=== PATIENT | female | born 1990 | race Hispanic/Latino ===

== ENCOUNTER 2018-05-14 14:39 | Inpatient (IN) | payer MEDICAID, OTHER, SELFPAY ==
[2018-05-14 15:58] LABS: BASO # 0.02 K/mm3 (0.0-2.0); BASO % 0.1 % (0.0-3.0); EOS % 0.1 % (1.5-5.0); GRAN # 25.99 (1.4-6.5); GRAN % 82.4 % (50.0-68.0); HEMOGLOBIN 13.1 g/dL (12.0-16.0); LYMPH # 2.7 (1.2-3.4); LYMPH % 8.4 % (22.0-35.0); MEAN CELL VOLUME 85.3 fl (80.0-105.0); MEAN CORPUSCULAR HEMOGLOBIN 29.6 pg (25.0-35.0); MEAN CORPUSCULAR HGB CONC 34.7 g/dl (31.0-37.0); MONO # 2.8 (0.1-0.6); PLATELET COUNT 359 10^3/uL (120.0-450.0); RBC 4.43 10^6/uL (3.5-6.1); RED CELL DISTRIBUTION WIDTH 12.7 % (11.5-14.5)
--- NOTE | 2018-05-14 15:58 | ED PDOC ---
Arrival/HPI - General Chief Complaint: Lower Extremity Problem/Injury Time Seen by Provider: 05/14/18 15:17 Historian: Patient - History of Present Illness Narrative History of Present Illness (Text): 05/14/18 19:33 28 year old female presents today with left leg numbness and weakness. Patient states she was getting her children a bath and suddenly developed a numbness sensation in both legs. Patient states she was unable to ambulate and called out of the room and then realized that the numbness and weakness was only in the left leg. Patient states he then had an anxiety attack and states that she developed chest pain and feeling extremely anxious and became nauseous. Patient states she has a history of anxiety and these are similar symptoms related to her anxiety. Patient states in the emergency room she is feeling better. Patient states she is able to move her leg. Patient denies any fevers or chills. She denies abdominal pain. She denies any trauma or injury. Patient states she's been having low back pain for the past 2 months with pain radiating into the left leg. Patient states she's been seen at other hospitals for similar symptoms. Patient denies a history of recent fever. She denies history of sick contacts. Patient states she was recently treated for urinary tract infection with an unknown antibiotics about a week ago. Patient states since then she's been having no urinary symptoms. She patient states she urinated prior to arrival. Patient states she has been taking Percocet for her back pain as well as occasionally using marijuana. Patient denies ever using any IV drugs patient states she was feeling fine until the left leg became numb and weak. Patient denies headache dizziness or weakness. Denies any other complaints. Time/Duration: Prior to Arrival Past Medical History - Provider Review Nursing Documentation Reviewed: Yes - Travel History Have you recently traveled outside [place] w/in the past 3 mons?: No - Past History Past History: No Previous - Infectious Disease Hx of Infectious Diseases: None - Tetanus Immunization Tetanus Immunization: Unknown - Past Medical History Past Medical History: No Previous - Cardiac Hx Pacemaker: No - Pulmonary Hx Respiratory Disorders: No - Neurological Hx Neurological Disorder: No - HEENT Hx HEENT Disorder: No (WEARS RX GLASSES) - Renal Hx Renal Disorder: Yes Hx Kidney Stones: Yes - Endocrine/Metabolic Hx Endocrine Disorders: No - Hematological/Oncological Hx Blood Transfusions: No Hx Blood Transfusion Reaction: No - Integumentary Hx Dermatological Disorder: No - Musculoskeletal/Rheumatological Hx Musculoskeletal Disorders: No - Gastrointestinal Hx Gastrointestinal Disorders: No - Genitourinary/Gynecological Hx Genitourinary Disorders: No ( X 1) Other/Comment: 17 MONTHS AGO - Psychiatric Hx Substance Use: No - Past Surgical History Past Surgical History: No Previous - Surgical History Hx Appendectomy: Yes - Anesthesia Hx Anesthesia Reactions: No Hx Malignant Hyperthermia: No - Suicidal Assessment Feels Threatened In Home Enviroment: No Family/Social History - Physician Review Nursing Documentation Reviewed: Yes Family/Social History: Unknown Family HX Smoking Status: Current Some Days Smoker Hx Alcohol Use: Yes Hx Substance Use: No Hx Substance Use Treatment: No Allergies/Home Meds Allergies/Adverse Reactions: Allergies cefaclor [From Ceclor] Allergy (Verified 05/14/18 14:46) RASH Home Medications: Home Meds Medication Instructions Recorded Confirmed No Known Home Med 06/18/15 06/18/15 Review of Systems - Review of Systems Constitutional: absent: Fatigue, Fevers Respiratory: absent: SOB, Cough Cardiovascular: Chest Pain. absent: Palpitations Gastrointestinal: Nausea. absent: Abdominal Pain, Constipation, Diarrhea, Vomiting Genitourinary Female: absent: Dysuria, Frequency, Hematuria, Urine Output Changes Musculoskeletal: Arthralgias, Back Pain. absent: Neck Pain Skin: absent: Rash, Pruritis Neurological: absent: Headache, Dizziness Psychiatric: Anxiety. absent: Depression, Suicidal Ideation Physical Exam Vital Signs Reviewed: Yes Vital Signs Temp Pulse Resp BP Pulse Ox 05/14/18 14:40 97.5 F L 115 H 20 113/69 99 Temperature: Afebrile Blood Pressure: Normal Pulse: Tachycardic Respiratory Rate: Normal Appearance: Positive for: Well-Appearing, Non-Toxic, Comfortable Pain Distress: None Mental Status: Positive for: Alert and Oriented X 3, other (anxious) - Systems Exam Head: Present: Atraumatic Mouth: Present: Moist Mucous Membranes Neck: Present: Normal Range of Motion Respiratory/Chest: Present: Clear to Auscultation, Good Air Exchange. No: Respiratory Distress, Accessory Muscle Use Cardiovascular: Present: Normal S1, S2, Tachycardic. No: Murmurs Abdomen: No: Tenderness, Distention, Rebound, Guarding Rectal: Present: Normal Rectal Tone. No: Occult Blood, Rectal Tenderness, Gross Blood, Melena, Hemorrhoids, Fissures Back: Present: Normal Inspection, Other (+ ttp over left sciatic foramen). No: Midline Tenderness, Paraspinal Tenderness Upper Extremity: Present: Normal Inspection, Normal ROM Lower Extremity: Present: NORMAL PULSES, Capillary Refill < 2 s, Other (+ decreased sensation in entire left leg. decreased strength in left leg. ). No: CALF TENDERNESS, Tenderness, Swelling, Erythema, Temperature Abnormalties, Neurovascularly Intact Neurological: Present: GCS=15, Speech Normal. No: Normal Sensory Function Skin: Present: Warm, Dry Psychiatric: Present: Alert, Oriented x 3 Medical Decision Making ED Course and Treatment: 05/14/18: 28yr old female presenting with left leg numbness. moving left slight. slightly decreased strength. hx of back pain x 2 months. rectal exam; good tone, no gross blood. No saddle paresthesias. Patient with inability to urinate in the emergency room. Straight catheterization ordered. 05/14/18 15:57 patient was given xanax po; within 2 minutes patient vomited. Patient was seen and evaluated by Dr. Mccord. MRI Of lumbar spine ordered. beta hcg; negative cbc; wbc:31 cmp; wnl UA; wnl cxr; wnl lactate; wnl blood and urine cultures pending ct abd/pelvis: FINDINGS: LUNG BASES: The lung bases appear clear. No pleural effusions are seen. LIVER: Mild periportal edema and pericholecystic fluid. , may represent fluid overload versus hepatitis. GALLBLADDER AND BILE DUCTS: However if there is clinical concern for cholecystitis, consider correlation with right upper quadrant ultrasound or hepatobiliary scan. PANCREAS: Unremarkable. SPLEEN: Unremarkable. ADRENAL GLANDS: 2.3 cm low density nodule is noted in the right adrenal gland consistent with an adenoma. KIDNEYS, URETERS, AND BLADDER: Several small bilateral renal cysts are present. The kidneys are otherwise normal. STOMACH AND BOWEL: Unremarkable appearance of the stomach and bowel. No evidence of bowel obstruction. No evidence suggesting enteritis or colitis. APPENDIX: Status post appendectomy. PERITONEUM: No free fluid. No free air. LYMPH NODES: No lymphadenopathy is evident. REPRODUCTIVE: Uterus and ovaries are unremarkable. VASCULATURE: No evidence of abdominal aortic aneurysm. BONES: No aggressive appearing osseous lesion. No acute osseous pathology evident. IMPRESSION: 1>. Mild periportal edema and pericholecystic fluid. , may represent fluid overload versus hepatitis. 2. However if there is clinical concern for cholecystitis, consider correlation with right upper quadrant ultrasound or hepatobiliary scan. 3. 2.3 cm low density nodule is noted in the right adrenal gland consistent with an adenoma. 4. Several small bilateral renal cysts are present. Patient with leukocytosis and left leg numbness inability to urinate in the emergency room. Concern for cauda equina versus epidural abscess. Will cover with vancomycin and aztreonam IV. pt reassesment; pt feeling better in ER: vitals improving. still c/o numbness in left leg. no abdominal pain. anxiety symptoms resolved. Case was discussed with Dr. Araujo. He would like the patient to be admitted to the hospitalist service. case was discussed with dr. Shabazz neurologist; she advised MRI of lumbar/sacral spine with IV contrast. case discussed with the cellophane wrapping examiner Dr. ventura who accepts admission to the ICU. case also discussed with dr. Saavedra. MRI is currently pending. All results discussed in depth with the patient and her . impression; leukocytosis, left leg numbness, left leg weakness, back pain Admit to ICU - RAD Interpretation Radiology Orders: 05/14/18 15:19 CHEST PORTABLE [RAD] Stat - Medication Orders Current Medication Orders: Discontinued Medications Alprazolam (Xanax) 0.5 mg PO STAT STA; Protocol Stop: 05/14/18 15:25 Last Admin: 05/14/18 15:41 Dose: 0.5 mg Disposition/Present on Arrival - Present on Arrival Any Indicators Present on Arrival: No History of DVT/PE: No History of Uncontrolled Diabetes: No Urinary Catheter: No History of Decub. Ulcer: No History Surgical Site Infection Following: None - Disposition Have Diagnosis and Disposition been Completed?: Yes Diagnosis: Leukocytosis, Left leg numbness, Back pain Disposition: HOSPITALIZED Disposition Time: 19:00 Patient Plan: Admission, ICU Patient Problems: Current Active Problems Problem Status Onset Back pain Acute Left leg numbness Acute Leukocytosis Acute Condition: CRITICAL
[2018-05-14] MEDS ORDERED: Sodium Chloride 0.9% 1,000 ML IV STA ×2 (16:05→17:03)
[2018-05-14 16:13] LABS: ACETAMINOPHEN < 10.0 ug/ml (10.0-20.0); SALICYLATE < 1 mg/dL (2.0-20.0)
[2018-05-14 16:16] LABS: ALB/GLOB RATIO 1.8 (1.1-1.8); ALBUMIN 4.9 g/dL (3.0-4.8); ALT/SGPT 32 U/L (7-56); AST/SGOT 44 U/L (14-36); BLOOD UREA NITROGEN 16 mg/dL (7-21); GFR NON-AFRICAN AMERICAN > 60
[2018-05-14 16:24] LABS: WHITE BLOOD COUNT 31.5 10^3/ul (4.5-11.0)
[2018-05-14 16:31] LABS: LYMPHOCYTE 13 % (22.0-35.0); MONOCYTE 3 % (1.0-6.0); NEUTROPHIL 84 % (50.0-70.0)
[2018-05-14 16:32] LABS: PLATELET ESTIMATE NORMAL (NORMAL)
[2018-05-14 17:03] LABS: VENOUS BLOOD GAS BASE EXCESS -1.4 mmol/L (0.0-2.0); VENOUS BLOOD GAS PO2 95 mm/Hg (30-55); VENOUS BLOOD PH 7.29 (7.32-7.43)
[2018-05-14 17:22] LABS: URINE BILIRUBIN NEGATIVE (NEGATIVE); URINE BLOOD NEGATIVE (NEGATIVE); URINE GLUCOSE (UA) 250 mg/dL (NEGATIVE); URINE LEUKOCYTE ESTERASE NEGATIVE Leu/uL (NEGATIVE); URINE PROTEIN 30 mg/dL (<30 mg/dL); URINE UROBILINOGEN 0.2 E.U./dL (<1 E.U./dL)
[2018-05-14 17:24] LABS: URINE APPEARANCE SL CLOUDY (CLEAR); URINE COLOR YELLOW (YELLOW)
[2018-05-14 17:26] LABS: URINE BACTERIA MANY (NEG); URINE RBC NEGATIVE /hpf (0-2); URINE WBC 0 - 2 /hpf (0-6)
[2018-05-14] MEDS ORDERED: Iohexol 350 MG/100 ML VIAL ONE (17:28)
[2018-05-14 17:56] LABS: BENZODIAZEPINES, UR NEGATIVE (NEGATIVE)
[2018-05-14 18:04] LABS: BARBITURATES, UR NEGATIVE (NEGATIVE); OPIATES, UR NEGATIVE (NEGATIVE); PHENCYCLIDINE, UR NEGATIVE (NEGATIVE)
[2018-05-14] MEDS ORDERED: Vancomycin 1gm in NS 250ml 1 GM/250 ML BAG IVPB STA (18:23)
[2018-05-14] MEDS ORDERED: Aztreonam 1 Gm in NS 100mL 100 ML IVPB STA (18:23)
[2018-05-14] MEDS ORDERED: Oxycodone/Acetaminophen 5/325 mg Tab PO PRN (20:24)
--- NOTE | 2018-05-14 20:40 | CP.PCM.HP ---
<Roxana Townsend - Last Filed: 05/16/18 06:39> History of Present Illness - History of Present Illness History of Present Illness: Roxana Townsend, PGY2, H&P for Dr Saavedra: CC: left leg numbness 28 year old female with PMH anxiety, presents for left leg numbness and weakness that started this afternoon. Patient states that she was giving her children a bath, when she felt that her left leg "gave out," became numb and weak, and she got on the floor. Then she felt that she became very anxious, may have passed out (for maybe a minute), then woke up, but was unable to move her left leg. Patient also reports that she has been having left sided sciatica pain for past 3 years since her . However, it has gotten worse for past month, patient was supposed to get physical therapy for it. Reports one episode of nausea, nonbilious vomiting during the episode, also reports ringing in her ears for some time. Denies fevers, chills, dizziness, shaking body movements, urinary/bowel incontinence, tongue biting, chest pain, sob, cough, dysuria, hematuria, neck pain, headaches. Patient reports urinary retention since the event this afternoon. However, she just urinated in ED currently. In ED, patient afebrile, hemodynamically stable. WBC count 31.5, lactate normal, CMP unremarkable, UA neg for infection. UDS pos for cannabinoids. 12 point ROS obtained and negative, except as per HPI. Past medical history: denies Surgical history: Appendectomy, kidney stones All: Cefaclor (as a child) patient has taken amoxicillin before. FH: Mother, MS, fibromyalgia Social history: Lives with . Smokes 5-6 ciggs/day for 8 years. Uses marijuana every other day. PMD: [facility] Present on Admission - Present on Admission Any Indicators Present on Admission: No History of DVT/PE: No History of Uncontrolled Diabetes: No Urinary Catheter: No Decubitus Ulcer Present: No Review of Systems - Review of Systems All systems: reviewed and no additional remarkable complaints except Review of Systems: as per HPI Past Patient History - Infectious Disease Hx of Infectious Diseases: None - Tetanus Immunizations Tetanus Immunization: Unknown - Past Social History Smoking Status: Current Some Days Smoker - CARDIAC Hx Pacemaker: No - PULMONARY Hx Respiratory Disorders: No - NEUROLOGICAL Hx Neurological Disorder: No - HEENT Hx HEENT Problems: No (WEARS RX GLASSES) - RENAL Hx Chronic Kidney Disease: Yes Hx Kidney Stones: Yes - ENDOCRINE/METABOLIC Hx Endocrine Disorders: No - HEMATOLOGICAL/ONCOLOGICAL Hx Blood Transfusions: No Hx Blood Transfusion Reaction: No - INTEGUMENTARY Hx Dermatological Problems: No - MUSCULOSKELETAL/RHEUMATOLOGICAL Hx Musculoskeletal Disorders: No - GASTROINTESTINAL Hx Gastrointestinal Disorders: No - GENITOURINARY/GYNECOLOGICAL Hx Genitourinary Disorders: No ( X 1) Other/Comment: 17 MONTHS AGO - PSYCHIATRIC Hx Substance Use: No - SURGICAL HISTORY Hx Appendectomy: Yes - ANESTHESIA Hx Anesthesia Reactions: No Hx Malignant Hyperthermia: No Meds Home Medications: Home Medication List Medication Instructions Recorded Confirmed Type Acetaminophen [Tylenol 325mg tab] 650 mg PO Q6H PRN tab 05/16/18 Rx Cyclobenzaprine [Flexeril] 5 mg PO Q8 #10 tab 05/16/18 Rx Dexamethasone [Decadron] 2 mg PO BID #4 tab 05/16/18 Rx Allergies/Adverse Reactions: Allergies Allergy/AdvReac Type Severity Reaction Status Date / Time cefaclor [From Ceclor] Allergy RASH Verified 05/14/18 14:46 Physical Exam - Constitutional Appears: Non-toxic, No Acute Distress - Head Exam Head Exam: ATRAUMATIC, NORMOCEPHALIC - Eye Exam Eye Exam: EOMI, PERRL. absent: Conjunctival injection, Nystagmus, Scleral icterus Pupil Exam: NORMAL ACCOMODATION, PERRL. absent: Irregular, Miosis, Mydriatic, Unequal - ENT Exam ENT Exam: Mucous Membranes Moist - Neck Exam Neck exam: Positive for: Full Rom - Respiratory Exam Respiratory Exam: Clear to Auscultation Bilateral, NORMAL BREATHING PATTERN. absent: Accessory Muscle Use, Chest Wall Tenderness, Prolonged Expiratory Phase, Rales, Rhonchi, Wheezes, Respiratory Distress, Stridor - Cardiovascular Exam Cardiovascular Exam: RRR, +S1, +S2. absent: Systolic Murmur - GI/Abdominal Exam GI & Abdominal Exam: Normal Bowel Sounds, Soft. absent: Distended, Firm, Guarding, Organomegaly, Pulsatile Mass, Rebound, Rigid, Tenderness - Extremities Exam Extremities exam: Positive for: normal inspection. Negative for: calf tenderness, pedal edema - Back Exam Back exam: muscle spasm (on left sided buttock area, with sciatica like pain), NORMAL INSPECTION. absent: CVA tenderness (L), CVA tenderness (R) - Neurological Exam Neurological exam: Alert, CN II-XII Intact, Oriented x3, Reflexes Normal Additional comments: Sensation to fine touch, pinprick intact throughout. Motor strength: RUE, RLE, LUE 5/5. LLE 4/5. No dysmetria. Did not assess gait as patient complaining that "she will not be able to stand up" - Psychiatric Exam Psychiatric exam: Anxious - Skin Skin Exam: Dry, Normal Color, Warm Results - Vital Signs Recent Vital Signs: Last Vital Signs Temp 97.5 F L 05/14/18 14:40 Pulse 109 H 05/14/18 19:44 Resp 18 05/14/18 19:44 BP 122/68 05/14/18 19:44 Pulse Ox 99 05/14/18 19:44 - Labs Result Diagrams: 05/14/18 15:45 05/14/18 15:45 Labs: Laboratory Results - last 24 hr 05/14/18 05/14/18 05/14/18 15:45 15:45 15:45 WBC 31.5 H* RBC 4.43 Hgb 13.1 Hct 37.8 MCV 85.3 MCH 29.6 MCHC 34.7 RDW 12.7 Plt Count 359 MPV 10.0 Gran % 82.4 H Lymph % (Auto) 8.4 L [place] % (Auto) 9.0 H Eos % (Auto) 0.1 L Baso % (Auto) 0.1 Gran # 25.99 H Lymph # (Auto) 2.7 [place] # (Auto) 2.8 H Eos # (Auto) 0.0 Baso # (Auto) 0.02 Neutrophils % (Manual) 84 H Lymphocytes % (Manual) 13 L Monocytes % (Manual) 3 Platelet Evaluation Normal pO2 VBG pH VBG pCO2 VBG HCO3 VBG Total CO2 VBG O2 Sat (Calc) VBG Base Excess VBG Potassium Glucose Lactate FiO2 Sodium 141 Potassium 3.7 Chloride 104 Carbon Dioxide 26 Anion Gap 15 BUN 16 Creatinine 0.7 Est GFR ( Amer) > 60 Est GFR (Non-Af Amer) > 60 Random Glucose 73 Calcium 9.0 Total Bilirubin 0.2 AST 44 H ALT 32 Alkaline Phosphatase 55 Total Protein 7.7 Albumin 4.9 H Globulin 2.8 Albumin/Globulin Ratio 1.8 Beta HCG, Quant Venous Blood Potassium Urine Color Urine Appearance Urine pH Ur Specific [place] Urine Protein Urine Glucose (UA) Urine Ketones Urine Blood Urine Nitrate Urine Bilirubin Urine Urobilinogen Ur Leukocyte Esterase Urine RBC Urine WBC Urine Bacteria Salicylates < 1 L Urine Opiates Screen Urine Methadone Screen Acetaminophen < 10.0 L Ur Barbiturates Screen Ur Phencyclidine Scrn Ur Amphetamines Screen U Benzodiazepines Scrn U Oth Cocaine Metabols U Cannabinoids Screen Alcohol, Quantitative 05/14/18 05/14/18 05/14/18 15:45 15:45 16:40 WBC RBC Hgb Hct MCV MCH MCHC RDW Plt Count MPV Gran % Lymph % (Auto) [place] % (Auto) Eos % (Auto) Baso % (Auto) Gran # Lymph # (Auto) [place] # (Auto) Eos # (Auto) Baso # (Auto) Neutrophils % (Manual) Lymphocytes % (Manual) Monocytes % (Manual) Platelet Evaluation pO2 95 H VBG pH 7.29 L VBG pCO2 54.0 VBG HCO3 26.0 VBG Total CO2 27.7 VBG O2 Sat (Calc) 99.2 H VBG Base Excess -1.4 L VBG Potassium 3.5 L Glucose 71 Lactate 1.1 FiO2 21.0 Sodium 141.0 Potassium Chloride 108.0 H Carbon Dioxide Anion Gap BUN Creatinine Est GFR ( Amer) Est GFR (Non-Af Amer) Random Glucose Calcium Total Bilirubin AST ALT Alkaline Phosphatase Total Protein Albumin Globulin Albumin/Globulin Ratio Beta HCG, Quant < 2.39 Venous Blood Potassium 3.5 L Urine Color Urine Appearance Urine pH Ur Specific [place] Urine Protein Urine Glucose (UA) Urine Ketones Urine Blood Urine Nitrate Urine Bilirubin Urine Urobilinogen Ur Leukocyte Esterase Urine RBC Urine WBC Urine Bacteria Salicylates Urine Opiates Screen Urine Methadone Screen Acetaminophen Ur Barbiturates Screen Ur Phencyclidine Scrn Ur Amphetamines Screen U Benzodiazepines Scrn U Oth Cocaine Metabols U Cannabinoids Screen Alcohol, Quantitative < 10 05/14/18 05/14/18 16:55 16:55 WBC RBC Hgb Hct MCV MCH MCHC RDW Plt Count MPV Gran % Lymph % (Auto) [place] % (Auto) Eos % (Auto) Baso % (Auto) Gran # Lymph # (Auto) [place] # (Auto) Eos # (Auto) Baso # (Auto) Neutrophils % (Manual) Lymphocytes % (Manual) Monocytes % (Manual) Platelet Evaluation pO2 VBG pH VBG pCO2 VBG HCO3 VBG Total CO2 VBG O2 Sat (Calc) VBG Base Excess VBG Potassium Glucose Lactate FiO2 Sodium Potassium Chloride Carbon Dioxide Anion Gap BUN Creatinine Est GFR ( Amer) Est GFR (Non-Af Amer) Random Glucose Calcium Total Bilirubin AST ALT Alkaline Phosphatase Total Protein Albumin Globulin Albumin/Globulin Ratio Beta HCG, Quant Venous Blood Potassium Urine Color Yellow Urine Appearance Sl cloudy Urine pH 6.0 Ur Specific [place] >= 1.030 Urine Protein 30 H Urine Glucose (UA) 250 H Urine Ketones Trace H Urine Blood Negative Urine Nitrate Negative Urine Bilirubin Negative Urine Urobilinogen 0.2 Ur Leukocyte Esterase Negative Urine RBC Negative Urine WBC 0 - 2 Urine Bacteria Many Salicylates Urine Opiates Screen Negative Urine Methadone Screen Negative Acetaminophen Ur Barbiturates Screen Negative Ur Phencyclidine Scrn Negative Ur Amphetamines Screen Negative U Benzodiazepines Scrn Negative U Oth Cocaine Metabols Negative U Cannabinoids Screen Positive H Alcohol, Quantitative Assessment & Plan - Assessment and Plan (Free Text) Assessment: 28 year old female with no significant PMH, presents for left leg numbness/weakness, concerning for cauda equina syndrome: Left leg numbness/weakness: 2/2 psychogenic vs cauda equina vs MS vs sciatica pain - Lumbar spine MRI pending. - Patient is able to move her left leg, strength LLE 4/5. RLE 5/5. Patient urinated in ED. - Decadron 10 mg IV given - Neurology consulted. F/u recs. - CT abd pelvis: Mild periportal edema and pericholecystic fluid. may represent fluid overload versus hepatitis. However if there is clinical concern for cholecystitis, consider correlation with right upper quadrant ultrasound or hepatobiliary scan. 2.3 cm low density nodule is noted in the right adrenal gland consistent with an adenoma. Several small bilateral renal cysts are present. - Neuro checks - Given Vanc and Azactam in ED. C.w abx - ID consulted. F/u recs. - Pancultured. f.u results. procal. - pain control - percocet, morphine for breakthrough pain - Physical therapy once ruled out cauda equina - monitor Hx of anxiety: - consider the above symptoms manifestation of a panic attack. - xanax prn - Consider psych consult. PPX: Pepcid, SCDs Case seen and discussed with Dr Saavedra. <Dorcas Saavedra - Last Filed: 05/16/18 19:07> Results - Vital Signs Recent Vital Signs: Last Vital Signs Temp 98.2 F 05/15/18 22:53 Pulse 76 05/15/18 22:53 Resp 18 05/15/18 22:53 BP 109/70 05/15/18 22:53 Pulse Ox 97 05/15/18 22:53 - Labs Result Diagrams: 05/16/18 06:00 05/16/18 06:00 Labs: Laboratory Results - last 24 hr 05/14/18 05/15/18 05/15/18 15:45 06:00 06:00 WBC 9.4 D RBC 4.12 Hgb 12.0 Hct 35.6 L MCV 86.4 MCH 29.1 MCHC 33.7 RDW 12.7 Plt Count 264 MPV 10.2 Gran % 85.7 H Lymph % (Auto) 12.6 L [place] % (Auto) 1.7 Eos % (Auto) 0.0 L Baso % (Auto) 0.0 Gran # 8.05 H Lymph # (Auto) 1.2 [place] # (Auto) 0.2 Eos # (Auto) 0.0 Baso # (Auto) 0.00 ESR Sodium Potassium Chloride Carbon Dioxide Anion Gap BUN Creatinine Est GFR ( Amer) Est GFR (Non-Af Amer) Random Glucose Hemoglobin A1c 5.2 Calcium Phosphorus Magnesium Total Bilirubin AST ALT Alkaline Phosphatase C-Reactive Protein Total Protein Albumin Globulin Albumin/Globulin Ratio Procalcitonin 0.55 H Hepatitis A IgM Ab Hep Bs Antigen Hep B Core IgM Ab Hepatitis C Antibody HIV 1&2 Ag/Ab, 4th Gen 05/15/18 05/15/18 05/15/18 06:00 12:10 12:10 WBC RBC Hgb Hct MCV MCH MCHC RDW Plt Count MPV Gran % Lymph % (Auto) [place] % (Auto) Eos % (Auto) Baso % (Auto) Gran # Lymph # (Auto) [place] # (Auto) Eos # (Auto) Baso # (Auto) ESR Sodium 136 Potassium 4.6 Chloride 106 Carbon Dioxide 21 Anion Gap 14 BUN 10 Creatinine 0.6 L Est GFR ( Amer) > 60 Est GFR (Non-Af Amer) > 60 Random Glucose 91 Hemoglobin A1c Calcium 8.8 Phosphorus 3.2 Magnesium 1.9 Total Bilirubin 0.3 AST 50 H ALT 34 Alkaline Phosphatase 44 C-Reactive Protein 9.90 Total Protein 6.2 Albumin 3.8 Globulin 2.4 Albumin/Globulin Ratio 1.6 Procalcitonin Hepatitis A IgM Ab Hep Bs Antigen Hep B Core IgM Ab Hepatitis C Antibody HIV 1&2 Ag/Ab, 4th Gen Nonreactive 05/15/18 05/15/18 05/15/18 12:10 12:10 12:10 WBC RBC Hgb Hct MCV MCH MCHC RDW Plt Count MPV Gran % Lymph % (Auto) [place] % (Auto) Eos % (Auto) Baso % (Auto) Gran # Lymph # (Auto) [place] # (Auto) Eos # (Auto) Baso # (Auto) ESR 3 Sodium Potassium Chloride Carbon Dioxide Anion Gap BUN Creatinine Est GFR ( Amer) Est GFR (Non-Af Amer) Random Glucose Hemoglobin A1c 5.2 Calcium Phosphorus Magnesium Total Bilirubin AST ALT Alkaline Phosphatase C-Reactive Protein Total Protein Albumin Globulin Albumin/Globulin Ratio Procalcitonin Hepatitis A IgM Ab Negative Hep Bs Antigen Negative Hep B Core IgM Ab Negative Hepatitis C Antibody Negative HIV 1&2 Ag/Ab, 4th Gen 05/16/18 06:00 WBC 11.9 H D RBC 4.14 Hgb 12.1 Hct 35.5 L MCV 85.7 MCH 29.2 MCHC 34.1 RDW 12.7 Plt Count 260 MPV 10.6 Gran % 83.1 H Lymph % (Auto) 11.8 L [place] % (Auto) 5.1 Eos % (Auto) 0.0 L Baso % (Auto) 0.0 Gran # 9.91 H Lymph # (Auto) 1.4 [place] # (Auto) 0.6 Eos # (Auto) 0.0 Baso # (Auto) 0.00 ESR Sodium Potassium Chloride Carbon Dioxide Anion Gap BUN Creatinine Est GFR ( Amer) Est GFR (Non-Af Amer) Random Glucose Hemoglobin A1c Calcium Phosphorus Magnesium Total Bilirubin AST ALT Alkaline Phosphatase C-Reactive Protein Total Protein Albumin Globulin Albumin/Globulin Ratio Procalcitonin Hepatitis A IgM Ab Hep Bs Antigen Hep B Core IgM Ab Hepatitis C Antibody HIV 1&2 Ag/Ab, 4th Gen Attending/Attestation - Attestation I have personally seen and examined this patient.: Yes I have fully participated in the care of the patient.: Yes I have reviewed all pertinent clinical information: Yes
[2018-05-14] MEDS: Morphine 2 mg/ml ISec IVP PRN (21:14)
[2018-05-14] MEDS: Aztreonam 1 Gm in NS 100mL 100 ML IVPB SCH (22:27)
[2018-05-15 00:59] VITALS: BMI 23.3
[2018-05-15] MEDS: Morphine 2 mg/ml ISec IVP PRN (05:03)
[2018-05-15] MEDS: Aztreonam 1 Gm in NS 100mL 100 ML IVPB SCH (05:06)
[2018-05-15] MEDS: Vancomycin 1gm in NS 250ml 1 GM/250 ML BAG IVPB SCH ×3 (07:22→21:41)
[2018-05-15 07:25] LABS: GRAN # 8.05 (1.4-6.5); GRAN % 85.7 % (50.0-68.0); LYMPH # 1.2 (1.2-3.4); LYMPH % 12.6 % (22.0-35.0); MEAN CELL VOLUME 86.4 fl (80.0-105.0); MEAN CORPUSCULAR HEMOGLOBIN 29.1 pg (25.0-35.0); MEAN CORPUSCULAR HGB CONC 33.7 g/dl (31.0-37.0); MEAN PLATELET VOLUME 10.2 fl (7.0-11.0); MONO # 0.2 (0.1-0.6); MONO % 1.7 % (1.0-6.0); RBC 4.12 10^6/uL (3.5-6.1); RED CELL DISTRIBUTION WIDTH 12.7 % (11.5-14.5)
[2018-05-15 07:36] LABS: WHITE BLOOD COUNT 9.4 10^3/ul (4.5-11.0)
[2018-05-15 07:46] LABS: ALB/GLOB RATIO 1.6 (1.1-1.8); ALBUMIN 3.8 g/dL (3.0-4.8); ALT/SGPT 34 U/L (7-56); AST/SGOT 50 U/L (14-36); BLOOD UREA NITROGEN 10 mg/dL (7-21); CALCIUM 8.8 mg/dL (8.4-10.5); GFR NON-AFRICAN AMERICAN > 60
--- NOTE | 2018-05-15 08:02 | CARD ---
APPROVED REPORT Date of service: 05/14/2018 EKG Measurement Heart [id number] <Conclusion> Sinus tachycardia Nonspecific ST and T wave abnormality Abnormal ECG
--- NOTE | 2018-05-15 08:31 | CP.CCUPN ---
<Ananya Baird - Last Filed: 05/15/18 12:32> CCU Subjective - Physician Review Subjective (Free Text): Ananya Baird, PGY-1, CCU Progress Note for Dr. Prasad Patient seen and evaluated at bedside. Patient had no overnight events. Patient reported improvement in left leg weakness but still reports numbness and pins and needles sensation. Patient denies headache, dizziness, chest pain, heart palpitations, shortness of breath, nausea, vomiting, constipation, diarrhea, dysuria, hematuria. Critical Care Time Spent (in minutes): 60 CCU Objective - Vital Signs / Intake & Output Vital Signs (Last 4 hours): Vital Signs Pulse Resp BP Pulse Ox 05/15/18 06:20 79 22 98 05/15/18 06:10 63 36 H 98 05/15/18 06:00 101 H 106/61 99 05/15/18 05:50 64 18 99 05/15/18 05:40 65 19 99 05/15/18 05:30 63 27 H 98 05/15/18 05:20 67 98 05/15/18 05:10 72 72 H 99 05/15/18 05:00 62 14 112/55 L 99 05/15/18 04:50 77 99 05/15/18 04:40 97 H 99 05/15/18 04:30 60 47 H 98 Intake and Output (Last 8hrs): Intake & Output 05/14/18 05/15/18 05/15/18 22:59 06:59 14:59 Intake Total 750 Output Total 450 Balance 300 Weight 136 lb 136 lb Intake: IV 450 Left Antecubital 450 Oral 300 Output: Urine 450 Urine, Voided 450 - Physical Exam Head: Positive for: Atraumatic, Normocephalic Pupils: Positive for: PERRL Extroacular Muscles: Positive for: EOMI Conjunctiva: Positive for: Normal Mouth: Positive for: Moist Mucous Membranes Pharnyx: Positive for: Normal Neck: Positive for: Normal Range of Motion Respiratory/Chest: Positive for: Clear to Auscultation, Good Air Exchange. Negative for: Respiratory Distress, Accessory Muscle Use Cardiovascular: Positive for: Normal S1, S2, Tachycardic. Negative for: Murmurs Abdomen: Negative for: Tenderness, Distention, Rebound, Guarding Rectal: Positive for: Normal Rectal Tone. Negative for: Occult Blood, Rectal Tenderness, Gross Blood, Melena, Hemorrhoids, Fissures Back: Positive for: Normal Inspection, Other (+ ttp over left sciatic foramen). Negative for: Midline Tenderness, Paraspinal Tenderness Upper Extremity: Positive for: Normal Inspection, Normal ROM Lower Extremity: Positive for: NORMAL PULSES, Capillary Refill < 2 s, Other (+ decreased sensation in entire left leg. +4/5 MSK in left leg). Negative for: CALF TENDERNESS, Tenderness, Swelling, Erythema, Temperature Abnormalties, Neurovascularly Intact Neurological: Positive for: GCS=15, Speech Normal. Negative for: Normal Sensory Function Skin: Positive for: Warm, Dry Psychiatric: Positive for: Alert, Oriented x 3 - Medications Active Medications: Active Medications Generic Name Dose Route Start Last Admin Trade Name Freq PRN Reason Stop Dose Admin Acetaminophen 650 mg 05/15/18 07:21 Tylenol 325mg Tab PO Q6H PRN Pain, Mild (1-3) Alprazolam 0.5 mg 05/15/18 03:45 Xanax PO BID PRN Anxiety Protocol Famotidine 20 mg 05/15/18 10:00 Pepcid PO 1000,2200 [facility] Vancomycin HCl 1 gm in 250 mls @ 167 mls/hr 05/14/18 20:30 05/15/18 07:22 Vancomycin 1gm IVPB Not Given Q12H [facility] Protocol Oxycodone/Acetaminophen 1 tab 05/14/18 20:24 Percocet 5/325 Mg Tab PO 05/17/18 20:25 Q6H PRN Pain, moderate (4-7) - Patient Studies Lab Studies: Lab Studies 05/15/18 05/15/18 05/14/18 Range/Units 06:00 06:00 16:55 WBC 9.4 D (4.5-11.0) 10^3/ul RBC 4.12 (3.5-6.1) 10^6/uL Hgb 12.0 (12.0-16.0) g/dL Hct 35.6 L (36.0-48.0) % MCV 86.4 (80.0-105.0) fl MCH 29.1 (25.0-35.0) pg MCHC 33.7 (31.0-37.0) g/dl RDW 12.7 (11.5-14.5) % Plt Count 264 (120.0-450.0) 10^3/uL MPV 10.2 (7.0-11.0) fl Gran % 85.7 H (50.0-68.0) % Lymph % (Auto) 12.6 L (22.0-35.0) % [place] % (Auto) 1.7 (1.0-6.0) % Eos % (Auto) 0.0 L (1.5-5.0) % Baso % (Auto) 0.0 (0.0-3.0) % Gran # 8.05 H (1.4-6.5) Lymph # (Auto) 1.2 (1.2-3.4) [place] # (Auto) 0.2 (0.1-0.6) Eos # (Auto) 0.0 (0.0-0.7) Baso # (Auto) 0.00 (0.0-2.0) K/mm3 Neutrophils % (Manual) (50.0-70.0) % Lymphocytes % (Manual) (22.0-35.0) % Monocytes % (Manual) (1.0-6.0) % Platelet Evaluation (NORMAL) pO2 (30-55) mm/Hg VBG pH (7.32-7.43) VBG pCO2 (40-60) VBG HCO3 (21-28) mmol/l VBG Total CO2 (22-28) mmol.L VBG O2 Sat (Calc) (40-65) % VBG Base Excess (0.0-2.0) mmol/L VBG Potassium (3.6-5.2) mmol/L Glucose (65-105) mg/dl Lactate (0.7-2.1) mmol/L FiO2 % Sodium 136 (132-148) mmol/L Potassium 4.6 (3.6-5.0) mmol/L Chloride 106 (98-107) mmol/L Carbon Dioxide 21 (21-33) mmol/L Anion Gap 14 (10-20) BUN 10 (7-21) mg/dL Creatinine 0.6 L (0.7-1.2) mg/dl Est GFR ( Amer) > 60 Est GFR (Non-Af Amer) > 60 Random Glucose 91 (70-110) mg/dL Calcium 8.8 (8.4-10.5) mg/dL Phosphorus 3.2 (2.5-4.5) mg/dL Magnesium 1.9 (1.7-2.2) mg/dL Total Bilirubin 0.3 (0.2-1.3) mg/dL AST 50 H (14-36) U/L ALT 34 (7-56) U/L Alkaline Phosphatase 44 (38-126) U/L Total Protein 6.2 (5.8-8.3) g/dL Albumin 3.8 (3.0-4.8) g/dL Globulin 2.4 gm/dL Albumin/Globulin Ratio 1.6 (1.1-1.8) Beta HCG, Quant (0-6.15) mIU/mL Venous Blood Potassium (3.6-5.2) mmol/L Urine Color (YELLOW) Urine Appearance (CLEAR) Urine pH (4.7-8.0) Ur Specific [place] (1.005-1.035) Urine Protein (<30 mg/dL) mg/dL Urine Glucose (UA) (NEGATIVE) mg/dL Urine Ketones (NEGATIVE) mg/dL Urine Blood (NEGATIVE) Urine Nitrate (NEGATIVE) Urine Bilirubin (NEGATIVE) Urine Urobilinogen (<1 E.U./dL) E.U./dL Ur Leukocyte Esterase (NEGATIVE) Denzel/uL Urine RBC (0-2) /hpf Urine WBC (0-6) /hpf Urine Bacteria (NEG) Salicylates (2.0-20.0) mg/dL Urine Opiates Screen Negative (NEGATIVE) Urine Methadone Screen Negative (NEGATIVE) Acetaminophen (10.0-20.0) ug/ml Ur Barbiturates Screen Negative (NEGATIVE) Ur Phencyclidine Scrn Negative (NEGATIVE) Ur Amphetamines Screen Negative (NEGATIVE) U Benzodiazepines Scrn Negative (NEGATIVE) U Oth Cocaine Metabols Negative (NEGATIVE) U Cannabinoids Screen Positive H (NEGATIVE) Alcohol, Quantitative (0-10) mg/dL 05/14/18 05/14/18 05/14/18 Range/Units 16:55 16:40 15:45 WBC (4.5-11.0) 10^3/ul RBC (3.5-6.1) 10^6/uL Hgb (12.0-16.0) g/dL Hct (36.0-48.0) % MCV (80.0-105.0) fl MCH (25.0-35.0) pg MCHC (31.0-37.0) g/dl RDW (11.5-14.5) % Plt Count (120.0-450.0) 10^3/uL MPV (7.0-11.0) fl Gran % (50.0-68.0) % Lymph % (Auto) (22.0-35.0) % [place] % (Auto) (1.0-6.0) % Eos % (Auto) (1.5-5.0) % Baso % (Auto) (0.0-3.0) % Gran # (1.4-6.5) Lymph # (Auto) (1.2-3.4) [place] # (Auto) (0.1-0.6) Eos # (Auto) (0.0-0.7) Baso # (Auto) (0.0-2.0) K/mm3 Neutrophils % (Manual) (50.0-70.0) % Lymphocytes % (Manual) (22.0-35.0) % Monocytes % (Manual) (1.0-6.0) % Platelet Evaluation (NORMAL) pO2 95 H (30-55) mm/Hg VBG pH 7.29 L (7.32-7.43) VBG pCO2 54.0 (40-60) VBG HCO3 26.0 (21-28) mmol/l VBG Total CO2 27.7 (22-28) mmol.L VBG O2 Sat (Calc) 99.2 H (40-65) % VBG Base Excess -1.4 L (0.0-2.0) mmol/L VBG Potassium 3.5 L (3.6-5.2) mmol/L Glucose 71 (65-105) mg/dl Lactate 1.1 (0.7-2.1) mmol/L FiO2 21.0 % Sodium 141.0 (132-148) mmol/L Potassium (3.6-5.0) mmol/L Chloride 108.0 H (98-107) mmol/L Carbon Dioxide (21-33) mmol/L Anion Gap (10-20) BUN (7-21) mg/dL Creatinine (0.7-1.2) mg/dl Est GFR ( Amer) Est GFR (Non-Af Amer) Random Glucose (70-110) mg/dL Calcium (8.4-10.5) mg/dL Phosphorus (2.5-4.5) mg/dL Magnesium (1.7-2.2) mg/dL Total Bilirubin (0.2-1.3) mg/dL AST (14-36) U/L ALT (7-56) U/L Alkaline Phosphatase (38-126) U/L Total Protein (5.8-8.3) g/dL Albumin (3.0-4.8) g/dL Globulin gm/dL Albumin/Globulin Ratio (1.1-1.8) Beta HCG, Quant < 2.39 (0-6.15) mIU/mL Venous Blood Potassium 3.5 L (3.6-5.2) mmol/L Urine Color Yellow (YELLOW) Urine Appearance Sl cloudy (CLEAR) Urine pH 6.0 (4.7-8.0) Ur Specific [place] >= 1.030 (1.005-1.035) Urine Protein 30 H (<30 mg/dL) mg/dL Urine Glucose (UA) 250 H (NEGATIVE) mg/dL Urine Ketones Trace H (NEGATIVE) mg/dL Urine Blood Negative (NEGATIVE) Urine Nitrate Negative (NEGATIVE) Urine Bilirubin Negative (NEGATIVE) Urine Urobilinogen 0.2 (<1 E.U./dL) E.U./dL Ur Leukocyte Esterase Negative (NEGATIVE) Denzel/uL Urine RBC Negative (0-2) /hpf Urine WBC 0 - 2 (0-6) /hpf Urine Bacteria Many (NEG) Salicylates (2.0-20.0) mg/dL Urine Opiates Screen (NEGATIVE) Urine Methadone Screen (NEGATIVE) Acetaminophen (10.0-20.0) ug/ml Ur Barbiturates Screen (NEGATIVE) Ur Phencyclidine Scrn (NEGATIVE) Ur Amphetamines Screen (NEGATIVE) U Benzodiazepines Scrn (NEGATIVE) U Oth Cocaine Metabols (NEGATIVE) U Cannabinoids Screen (NEGATIVE) Alcohol, Quantitative (0-10) mg/dL 05/14/18 05/14/18 05/14/18 Range/Units 15:45 15:45 15:45 WBC (4.5-11.0) 10^3/ul RBC (3.5-6.1) 10^6/uL Hgb (12.0-16.0) g/dL Hct (36.0-48.0) % MCV (80.0-105.0) fl MCH (25.0-35.0) pg MCHC (31.0-37.0) g/dl RDW (11.5-14.5) % Plt Count (120.0-450.0) 10^3/uL MPV (7.0-11.0) fl Gran % (50.0-68.0) % Lymph % (Auto) (22.0-35.0) % [place] % (Auto) (1.0-6.0) % Eos % (Auto) (1.5-5.0) % Baso % (Auto) (0.0-3.0) % Gran # (1.4-6.5) Lymph # (Auto) (1.2-3.4) [place]lier # (Auto) (0.1-0.6) Eos # (Auto) (0.0-0.7) Baso # (Auto) (0.0-2.0) K/mm3 Neutrophils % (Manual) (50.0-70.0) % Lymphocytes % (Manual) (22.0-35.0) % Monocytes % (Manual) (1.0-6.0) % Platelet Evaluation (NORMAL) pO2 (30-55) mm/Hg VBG pH (7.32-7.43) VBG pCO2 (40-60) VBG HCO3 (21-28) mmol/l VBG Total CO2 (22-28) mmol.L VBG O2 Sat (Calc) (40-65) % VBG Base Excess (0.0-2.0) mmol/L VBG Potassium (3.6-5.2) mmol/L Glucose (65-105) mg/dl Lactate (0.7-2.1) mmol/L FiO2 % Sodium 141 (132-148) mmol/L Potassium 3.7 (3.6-5.0) mmol/L Chloride 104 (98-107) mmol/L Carbon Dioxide 26 (21-33) mmol/L Anion Gap 15 (10-20) BUN 16 (7-21) mg/dL Creatinine 0.7 (0.7-1.2) mg/dl Est GFR ( Amer) > 60 Est GFR (Non-Af Amer) > 60 Random Glucose 73 (70-110) mg/dL Calcium 9.0 (8.4-10.5) mg/dL Phosphorus (2.5-4.5) mg/dL Magnesium (1.7-2.2) mg/dL Total Bilirubin 0.2 (0.2-1.3) mg/dL AST 44 H (14-36) U/L ALT 32 (7-56) U/L Alkaline Phosphatase 55 (38-126) U/L Total Protein 7.7 (5.8-8.3) g/dL Albumin 4.9 H (3.0-4.8) g/dL Globulin 2.8 gm/dL Albumin/Globulin Ratio 1.8 (1.1-1.8) Beta HCG, Quant (0-6.15) mIU/mL Venous Blood Potassium (3.6-5.2) mmol/L Urine Color (YELLOW) Urine Appearance (CLEAR) Urine pH (4.7-8.0) Ur Specific [place] (1.005-1.035) Urine Protein (<30 mg/dL) mg/dL Urine Glucose (UA) (NEGATIVE) mg/dL Urine Ketones (NEGATIVE) mg/dL Urine Blood (NEGATIVE) Urine Nitrate (NEGATIVE) Urine Bilirubin (NEGATIVE) Urine Urobilinogen (<1 E.U./dL) E.U./dL Ur Leukocyte Esterase (NEGATIVE) Denzel/uL Urine RBC (0-2) /hpf Urine WBC (0-6) /hpf Urine Bacteria (NEG) Salicylates < 1 L (2.0-20.0) mg/dL Urine Opiates Screen (NEGATIVE) Urine Methadone Screen (NEGATIVE) Acetaminophen < 10.0 L (10.0-20.0) ug/ml Ur Barbiturates Screen (NEGATIVE) Ur Phencyclidine Scrn (NEGATIVE) Ur Amphetamines Screen (NEGATIVE) U Benzodiazepines Scrn (NEGATIVE) U Oth Cocaine Metabols (NEGATIVE) U Cannabinoids Screen (NEGATIVE) Alcohol, Quantitative < 10 (0-10) mg/dL 05/14/18 Range/Units 15:45 WBC 31.5 H* (4.5-11.0) 10^3/ul RBC 4.43 (3.5-6.1) 10^6/uL Hgb 13.1 (12.0-16.0) g/dL Hct 37.8 (36.0-48.0) % MCV 85.3 (80.0-105.0) fl MCH 29.6 (25.0-35.0) pg MCHC 34.7 (31.0-37.0) g/dl RDW 12.7 (11.5-14.5) % Plt Count 359 (120.0-450.0) 10^3/uL MPV 10.0 (7.0-11.0) fl Gran % 82.4 H (50.0-68.0) % Lymph % (Auto) 8.4 L (22.0-35.0) % [place] % (Auto) 9.0 H (1.0-6.0) % Eos % (Auto) 0.1 L (1.5-5.0) % Baso % (Auto) 0.1 (0.0-3.0) % Gran # 25.99 H (1.4-6.5) Lymph # (Auto) 2.7 (1.2-3.4) [place] # (Auto) 2.8 H (0.1-0.6) Eos # (Auto) 0.0 (0.0-0.7) Baso # (Auto) 0.02 (0.0-2.0) K/mm3 Neutrophils % (Manual) 84 H (50.0-70.0) % Lymphocytes % (Manual) 13 L (22.0-35.0) % Monocytes % (Manual) 3 (1.0-6.0) % Platelet Evaluation Normal (NORMAL) pO2 (30-55) mm/Hg VBG pH (7.32-7.43) VBG pCO2 (40-60) VBG HCO3 (21-28) mmol/l VBG Total CO2 (22-28) mmol.L VBG O2 Sat (Calc) (40-65) % VBG Base Excess (0.0-2.0) mmol/L VBG Potassium (3.6-5.2) mmol/L Glucose (65-105) mg/dl Lactate (0.7-2.1) mmol/L FiO2 % Sodium (132-148) mmol/L Potassium (3.6-5.0) mmol/L Chloride (98-107) mmol/L Carbon Dioxide (21-33) mmol/L Anion Gap (10-20) BUN (7-21) mg/dL Creatinine (0.7-1.2) mg/dl Est GFR ( Amer) Est GFR (Non-Af Amer) Random Glucose (70-110) mg/dL Calcium (8.4-10.5) mg/dL Phosphorus (2.5-4.5) mg/dL Magnesium (1.7-2.2) mg/dL Total Bilirubin (0.2-1.3) mg/dL AST (14-36) U/L ALT (7-56) U/L Alkaline Phosphatase (38-126) U/L Total Protein (5.8-8.3) g/dL Albumin (3.0-4.8) g/dL Globulin gm/dL Albumin/Globulin Ratio (1.1-1.8) Beta HCG, Quant (0-6.15) mIU/mL Venous Blood Potassium (3.6-5.2) mmol/L Urine Color (YELLOW) Urine Appearance (CLEAR) Urine pH (4.7-8.0) Ur Specific [place] (1.005-1.035) Urine Protein (<30 mg/dL) mg/dL Urine Glucose (UA) (NEGATIVE) mg/dL Urine Ketones (NEGATIVE) mg/dL Urine Blood (NEGATIVE) Urine Nitrate (NEGATIVE) Urine Bilirubin (NEGATIVE) Urine Urobilinogen (<1 E.U./dL) E.U./dL Ur Leukocyte Esterase (NEGATIVE) Denzel/uL Urine RBC (0-2) /hpf Urine WBC (0-6) /hpf Urine Bacteria (NEG) Salicylates (2.0-20.0) mg/dL Urine Opiates Screen (NEGATIVE) Urine Methadone Screen (NEGATIVE) Acetaminophen (10.0-20.0) ug/ml Ur Barbiturates Screen (NEGATIVE) Ur Phencyclidine Scrn (NEGATIVE) Ur Amphetamines Screen (NEGATIVE) U Benzodiazepines Scrn (NEGATIVE) U Oth Cocaine Metabols (NEGATIVE) U Cannabinoids Screen (NEGATIVE) Alcohol, Quantitative (0-10) mg/dL Laboratory Results - last 24 hr 05/14/18 05/14/18 05/14/18 15:45 15:45 15:45 WBC 31.5 H* RBC 4.43 Hgb 13.1 Hct 37.8 MCV 85.3 MCH 29.6 MCHC 34.7 RDW 12.7 Plt Count 359 MPV 10.0 Gran % 82.4 H Lymph % (Auto) 8.4 L [place] % (Auto) 9.0 H Eos % (Auto) 0.1 L Baso % (Auto) 0.1 Gran # 25.99 H Lymph # (Auto) 2.7 [place] # (Auto) 2.8 H Eos # (Auto) 0.0 Baso # (Auto) 0.02 Neutrophils % (Manual) 84 H Lymphocytes % (Manual) 13 L Monocytes % (Manual) 3 Platelet Evaluation Normal pO2 VBG pH VBG pCO2 VBG HCO3 VBG Total CO2 VBG O2 Sat (Calc) VBG Base Excess VBG Potassium Glucose Lactate FiO2 Sodium 141 Potassium 3.7 Chloride 104 Carbon Dioxide 26 Anion Gap 15 BUN 16 Creatinine 0.7 Est GFR ( Amer) > 60 Est GFR (Non-Af Amer) > 60 Random Glucose 73 Calcium 9.0 Phosphorus Magnesium Total Bilirubin 0.2 AST 44 H ALT 32 Alkaline Phosphatase 55 Total Protein 7.7 Albumin 4.9 H Globulin 2.8 Albumin/Globulin Ratio 1.8 Beta HCG, Quant Venous Blood Potassium Urine Color Urine Appearance Urine pH Ur Specific [place] Urine Protein Urine Glucose (UA) Urine Ketones Urine Blood Urine Nitrate Urine Bilirubin Urine Urobilinogen Ur Leukocyte Esterase Urine RBC Urine WBC Urine Bacteria Salicylates < 1 L Urine Opiates Screen Urine Methadone Screen Acetaminophen < 10.0 L Ur Barbiturates Screen Ur Phencyclidine Scrn Ur Amphetamines Screen U Benzodiazepines Scrn U Oth Cocaine Metabols U Cannabinoids Screen Alcohol, Quantitative 05/14/18 05/14/18 05/14/18 15:45 15:45 16:40 WBC RBC Hgb Hct MCV MCH MCHC RDW Plt Count MPV Gran % Lymph % (Auto) [place] % (Auto) Eos % (Auto) Baso % (Auto) Gran # Lymph # (Auto) [place] # (Auto) Eos # (Auto) Baso # (Auto) Neutrophils % (Manual) Lymphocytes % (Manual) Monocytes % (Manual) Platelet Evaluation pO2 95 H VBG pH 7.29 L VBG pCO2 54.0 VBG HCO3 26.0 VBG Total CO2 27.7 VBG O2 Sat (Calc) 99.2 H VBG Base Excess -1.4 L VBG Potassium 3.5 L Glucose 71 Lactate 1.1 FiO2 21.0 Sodium 141.0 Potassium Chloride 108.0 H Carbon Dioxide Anion Gap BUN Creatinine Est GFR ( Amer) Est GFR (Non-Af Amer) Random Glucose Calcium Phosphorus Magnesium Total Bilirubin AST ALT Alkaline Phosphatase Total Protein Albumin Globulin Albumin/Globulin Ratio Beta HCG, Quant < 2.39 Venous Blood Potassium 3.5 L Urine Color Urine Appearance Urine pH Ur Specific [place] Urine Protein Urine Glucose (UA) Urine Ketones Urine Blood Urine Nitrate Urine Bilirubin Urine Urobilinogen Ur Leukocyte Esterase Urine RBC Urine WBC Urine Bacteria Salicylates Urine Opiates Screen Urine Methadone Screen Acetaminophen Ur Barbiturates Screen Ur Phencyclidine Scrn Ur Amphetamines Screen U Benzodiazepines Scrn U Oth Cocaine Metabols U Cannabinoids Screen Alcohol, Quantitative < 10 05/14/18 05/14/18 05/15/18 16:55 16:55 06:00 WBC 9.4 D RBC 4.12 Hgb 12.0 Hct 35.6 L MCV 86.4 MCH 29.1 MCHC 33.7 RDW 12.7 Plt Count 264 MPV 10.2 Gran % 85.7 H Lymph % (Auto) 12.6 L [place] % (Auto) 1.7 Eos % (Auto) 0.0 L Baso % (Auto) 0.0 Gran # 8.05 H Lymph # (Auto) 1.2 [place] # (Auto) 0.2 Eos # (Auto) 0.0 Baso # (Auto) 0.00 Neutrophils % (Manual) Lymphocytes % (Manual) Monocytes % (Manual) Platelet Evaluation pO2 VBG pH VBG pCO2 VBG HCO3 VBG Total CO2 VBG O2 Sat (Calc) VBG Base Excess VBG Potassium Glucose Lactate FiO2 Sodium Potassium Chloride Carbon Dioxide Anion Gap BUN Creatinine Est GFR ( Amer) Est GFR (Non-Af Amer) Random Glucose Calcium Phosphorus Magnesium Total Bilirubin AST ALT Alkaline Phosphatase Total Protein Albumin Globulin Albumin/Globulin Ratio Beta HCG, Quant Venous Blood Potassium Urine Color Yellow Urine Appearance Sl cloudy Urine pH 6.0 Ur Specific [place] >= 1.030 Urine Protein 30 H Urine Glucose (UA) 250 H Urine Ketones Trace H Urine Blood Negative Urine Nitrate Negative Urine Bilirubin Negative Urine Urobilinogen 0.2 Ur Leukocyte Esterase Negative Urine RBC Negative Urine WBC 0 - 2 Urine Bacteria Many Salicylates Urine Opiates Screen Negative Urine Methadone Screen Negative Acetaminophen Ur Barbiturates Screen Negative Ur Phencyclidine Scrn Negative Ur Amphetamines Screen Negative U Benzodiazepines Scrn Negative U Oth Cocaine Metabols Negative U Cannabinoids Screen Positive H Alcohol, Quantitative 05/15/18 06:00 WBC RBC Hgb Hct MCV MCH MCHC RDW Plt Count MPV Gran % Lymph % (Auto) [place] % (Auto) Eos % (Auto) Baso % (Auto) Gran # Lymph # (Auto) [place] # (Auto) Eos # (Auto) Baso # (Auto) Neutrophils % (Manual) Lymphocytes % (Manual) Monocytes % (Manual) Platelet Evaluation pO2 VBG pH VBG pCO2 VBG HCO3 VBG Total CO2 VBG O2 Sat (Calc) VBG Base Excess VBG Potassium Glucose Lactate FiO2 Sodium 136 Potassium 4.6 Chloride 106 Carbon Dioxide 21 Anion Gap 14 BUN 10 Creatinine 0.6 L Est GFR ( Amer) > 60 Est GFR (Non-Af Amer) > 60 Random Glucose 91 Calcium 8.8 Phosphorus 3.2 Magnesium 1.9 Total Bilirubin 0.3 AST 50 H ALT 34 Alkaline Phosphatase 44 Total Protein 6.2 Albumin 3.8 Globulin 2.4 Albumin/Globulin Ratio 1.6 Beta HCG, Quant Venous Blood Potassium Urine Color Urine Appearance Urine pH Ur Specific [place] Urine Protein Urine Glucose (UA) Urine Ketones Urine Blood Urine Nitrate Urine Bilirubin Urine Urobilinogen Ur Leukocyte Esterase Urine RBC Urine WBC Urine Bacteria Salicylates Urine Opiates Screen Urine Methadone Screen Acetaminophen Ur Barbiturates Screen Ur Phencyclidine Scrn Ur Amphetamines Screen U Benzodiazepines Scrn U Oth Cocaine Metabols U Cannabinoids Screen Alcohol, Quantitative EKG/Cardiology Studies: Cardiology / EKG Studies 05/14/18 15:18 ELECTROCARDIOGRAM Stat Comment: Reason For Exam: anxiety Review of Systems - Constitutional Constitutional: absent: Fever, Chills, Sweats - EENT Eyes: absent: Blurred Vision Ears: absent: Decreased Hearing - Cardiovascular Cardiovascular: absent: Chest Pain, Chest Pain at Rest, Dyspnea on Exertion - Respiratory Respiratory: absent: Cough, Dyspnea, Dyspnea on Exertion, Wheezing - Gastrointestinal Gastrointestinal: absent: Abdominal Pain, Constipation, Diarrhea, Nausea, Vomiting - Genitourinary Genitourinary: absent: Change in Urinary Stream, Difficulty Urinating, Dysuria, Flank Pain, Hematuria - Musculoskeletal Musculoskeletal: Back Pain, Muscle Weakness, Numbness, Tingling - Neurological Neurological: Numbness, Tingling, Weakness Critical Care Progress Note - Ventilator Checklist Head of Bed 30 Degrees: Yes PUD Prophalyxis: Yes DVT Prophylaxis: Yes - Extremities/Vascular Does the Patient have a Central Venous Catheter?: No Does the Patient need a Central Venous Catheter?: No Does the Patient have a Domínguez Catheter?: No Does the Patient need a Domínguez Catheter?: No Assessment/Plan - Assessment and Plan (Free Text) Assessment: 28 year old female with past medical history of anxiety and sciatica presents with left leg weakness and numbness. Plan: Neuro: -AAOx3, moving extremities past midline. -Lumbar MRI unremarkable for cauda equina or any spinal cord lesions. -Weakness and numbness in left leg possibly 2/2 to piriformis syndrome. -Patient currently has no headache, change in vision, neck stiffness, or nausea. Consider Head CT if patient has worsening symptoms. -Monitor neuro status. -Reorient patient as necessary. -Dr. Shabazz, Neurology, consulted for recommendations. Cardio: -RRR, normotensive, no signs of HD compromise -Maintain MAP>65. -Monitor for S/S, HD compromise. Pulm: -No signs of respiratory distress. CTA B/L -Patient is stating well on room air. -Maintain O2 saturation>95%. GI: -Tolerating diet well. -Abdominal CT: shows minimal pericholecystic fluid with possible cholecystitis. No consideration for ultrasound at this time due to clinical stability. -Protonix or pepcid /Nephro: -BUN/Cr stable -Good urine output -Continue monitoring. -Replete electrolytes as needed. -Maintain euvolemia. Endocrinology: -Random glucose: 91 -Maintain euglycemia. Heme/Onc: -H/H stable. -No signs of HD compromise. -Continue monitoring H/H ID: -Afebrile, leukocytosis resolved -Follow up BCx, UCx, Procalcitonin, Lactate -Monitor for signs and symptoms of infection. DVT prophylaxis: SCD GI prophylaxis: pepcid 20 mg Disposition: Patient will be transferred to medicine floors. Patient is stable and ready for transfer. Patient plan discussed with Dr. Prasad - Date & Time Date: 05/15/18 Time: 08:47 <Celestine Prasad - Last Filed: 05/15/18 13:53> CCU Objective - Vital Signs / Intake & Output Intake and Output (Last 8hrs): Intake & Output 05/14/18 05/15/18 05/15/18 22:59 06:59 14:59 Intake Total 750 120 Output Total 450 500 Balance 300 -380 Weight 61.689 kg 61.689 kg Intake: IV 450 Left Antecubital 450 Oral 300 120 Output: Urine 450 500 Urine, Voided 450 500 Other: # Bowel Movements 0 - Medications Active Medications: Active Medications Generic Name Dose Route Start Last Admin Trade Name Freq PRN Reason Stop Dose Admin Acetaminophen 650 mg 05/15/18 07:21 05/15/18 10:34 Tylenol 325mg Tab PO 650 mg Q6H PRN Administration Pain, Mild (1-3) Alprazolam 0.5 mg 05/15/18 03:45 Xanax PO BID PRN Anxiety Protocol Cyclobenzaprine HCl 5 mg 05/15/18 10:51 Flexeril PO TID PRN Muscle spasm Dexamethasone 4 mg 05/15/18 14:00 Decadron PO Q8 SULEIMAN Famotidine 20 mg 05/15/18 10:00 05/15/18 10:34 Pepcid PO 20 mg 1000,2200 SULEIMAN Administration Vancomycin HCl 1 gm in 250 mls @ 167 mls/hr 05/14/18 20:30 05/15/18 10:35 Vancomycin 1gm IVPB 167 mls/hr Q12H SULEIMAN Administration Protocol - Patient Studies Lab Studies: Lab Studies 05/15/18 05/15/18 05/15/18 Range/Units 12:10 06:00 06:00 WBC 9.4 D (4.5-11.0) 10^3/ul RBC 4.12 (3.5-6.1) 10^6/uL Hgb 12.0 (12.0-16.0) g/dL Hct 35.6 L (36.0-48.0) % MCV 86.4 (80.0-105.0) fl MCH 29.1 (25.0-35.0) pg MCHC 33.7 (31.0-37.0) g/dl RDW 12.7 (11.5-14.5) % Plt Count 264 (120.0-450.0) 10^3/uL MPV 10.2 (7.0-11.0) fl Gran % 85.7 H (50.0-68.0) % Lymph % (Auto) 12.6 L (22.0-35.0) % Collier % (Auto) 1.7 (1.0-6.0) % Eos % (Auto) 0.0 L (1.5-5.0) % Baso % (Auto) 0.0 (0.0-3.0) % Gran # 8.05 H (1.4-6.5) Lymph # (Auto) 1.2 (1.2-3.4) Collier # (Auto) 0.2 (0.1-0.6) Eos # (Auto) 0.0 (0.0-0.7) Baso # (Auto) 0.00 (0.0-2.0) K/mm3 Neutrophils % (Manual) (50.0-70.0) % Lymphocytes % (Manual) (22.0-35.0) % Monocytes % (Manual) (1.0-6.0) % Platelet Evaluation (NORMAL) ESR 3 (0.0-20.0) mm/hr pO2 (30-55) mm/Hg VBG pH (7.32-7.43) VBG pCO2 (40-60) VBG HCO3 (21-28) mmol/l VBG Total CO2 (22-28) mmol.L VBG O2 Sat (Calc) (40-65) % VBG Base Excess (0.0-2.0) mmol/L VBG Potassium (3.6-5.2) mmol/L Glucose (65-105) mg/dl Lactate (0.7-2.1) mmol/L FiO2 % Sodium 136 (132-148) mmol/L Potassium 4.6 (3.6-5.0) mmol/L Chloride 106 (98-107) mmol/L Carbon Dioxide 21 (21-33) mmol/L Anion Gap 14 (10-20) BUN 10 (7-21) mg/dL Creatinine 0.6 L (0.7-1.2) mg/dl Est GFR ( Amer) > 60 Est GFR (Non-Af Amer) > 60 Random Glucose 91 (70-110) mg/dL Hemoglobin A1c (4.2-6.5) % Calcium 8.8 (8.4-10.5) mg/dL Phosphorus 3.2 (2.5-4.5) mg/dL Magnesium 1.9 (1.7-2.2) mg/dL Total Bilirubin 0.3 (0.2-1.3) mg/dL AST 50 H (14-36) U/L ALT 34 (7-56) U/L Alkaline Phosphatase 44 (38-126) U/L Total Protein 6.2 (5.8-8.3) g/dL Albumin 3.8 (3.0-4.8) g/dL Globulin 2.4 gm/dL Albumin/Globulin Ratio 1.6 (1.1-1.8) Procalcitonin (0.19-0.49) NG/ML Beta HCG, Quant (0-6.15) mIU/mL Venous Blood Potassium (3.6-5.2) mmol/L Urine Color (YELLOW) Urine Appearance (CLEAR) Urine pH (4.7-8.0) Ur Specific [place] (1.005-1.035) Urine Protein (<30 mg/dL) mg/dL Urine Glucose (UA) (NEGATIVE) mg/dL Urine Ketones (NEGATIVE) mg/dL Urine Blood (NEGATIVE) Urine Nitrate (NEGATIVE) Urine Bilirubin (NEGATIVE) Urine Urobilinogen (<1 E.U./dL) E.U./dL Ur Leukocyte Esterase (NEGATIVE) Denzel/uL Urine RBC (0-2) /hpf Urine WBC (0-6) /hpf Urine Bacteria (NEG) Salicylates (2.0-20.0) mg/dL Urine Opiates Screen (NEGATIVE) Urine Methadone Screen (NEGATIVE) Acetaminophen (10.0-20.0) ug/ml Ur Barbiturates Screen (NEGATIVE) Ur Phencyclidine Scrn (NEGATIVE) Ur Amphetamines Screen (NEGATIVE) U Benzodiazepines Scrn (NEGATIVE) U Oth Cocaine Metabols (NEGATIVE) U Cannabinoids Screen (NEGATIVE) Alcohol, Quantitative (0-10) mg/dL 05/15/18 05/14/18 05/14/18 Range/Units 06:00 16:55 16:55 WBC (4.5-11.0) 10^3/ul RBC (3.5-6.1) 10^6/uL Hgb (12.0-16.0) g/dL Hct (36.0-48.0) % MCV (80.0-105.0) fl MCH (25.0-35.0) pg MCHC (31.0-37.0) g/dl RDW (11.5-14.5) % Plt Count (120.0-450.0) 10^3/uL MPV (7.0-11.0) fl Gran % (50.0-68.0) % Lymph % (Auto) (22.0-35.0) % Collier % (Auto) (1.0-6.0) % Eos % (Auto) (1.5-5.0) % Baso % (Auto) (0.0-3.0) % Gran # (1.4-6.5) Lymph # (Auto) (1.2-3.4) Collier # (Auto) (0.1-0.6) Eos # (Auto) (0.0-0.7) Baso # (Auto) (0.0-2.0) K/mm3 Neutrophils % (Manual) (50.0-70.0) % Lymphocytes % (Manual) (22.0-35.0) % Monocytes % (Manual) (1.0-6.0) % Platelet Evaluation (NORMAL) ESR (0.0-20.0) mm/hr pO2 (30-55) mm/Hg VBG pH (7.32-7.43) VBG pCO2 (40-60) VBG HCO3 (21-28) mmol/l VBG Total CO2 (22-28) mmol.L VBG O2 Sat (Calc) (40-65) % VBG Base Excess (0.0-2.0) mmol/L VBG Potassium (3.6-5.2) mmol/L Glucose (65-105) mg/dl Lactate (0.7-2.1) mmol/L FiO2 % Sodium (132-148) mmol/L Potassium (3.6-5.0) mmol/L Chloride (98-107) mmol/L Carbon Dioxide (21-33) mmol/L Anion Gap (10-20) BUN (7-21) mg/dL Creatinine (0.7-1.2) mg/dl Est GFR ( Amer) Est GFR (Non-Af Amer) Random Glucose (70-110) mg/dL Hemoglobin A1c (4.2-6.5) % Calcium (8.4-10.5) mg/dL Phosphorus (2.5-4.5) mg/dL Magnesium (1.7-2.2) mg/dL Total Bilirubin (0.2-1.3) mg/dL AST (14-36) U/L ALT (7-56) U/L Alkaline Phosphatase (38-126) U/L Total Protein (5.8-8.3) g/dL Albumin (3.0-4.8) g/dL Globulin gm/dL Albumin/Globulin Ratio (1.1-1.8) Procalcitonin 0.55 H (0.19-0.49) NG/ML Beta HCG, Quant (0-6.15) mIU/mL Venous Blood Potassium (3.6-5.2) mmol/L Urine Color Yellow (YELLOW) Urine Appearance Sl cloudy (CLEAR) Urine pH 6.0 (4.7-8.0) Ur Specific [place] >= 1.030 (1.005-1.035) Urine Protein 30 H (<30 mg/dL) mg/dL Urine Glucose (UA) 250 H (NEGATIVE) mg/dL Urine Ketones Trace H (NEGATIVE) mg/dL Urine Blood Negative (NEGATIVE) Urine Nitrate Negative (NEGATIVE) Urine Bilirubin Negative (NEGATIVE) Urine Urobilinogen 0.2 (<1 E.U./dL) E.U./dL Ur Leukocyte Esterase Negative (NEGATIVE) Denzel/uL Urine RBC Negative (0-2) /hpf Urine WBC 0 - 2 (0-6) /hpf Urine Bacteria Many (NEG) Salicylates (2.0-20.0) mg/dL Urine Opiates Screen Negative (NEGATIVE) Urine Methadone Screen Negative (NEGATIVE) Acetaminophen (10.0-20.0) ug/ml Ur Barbiturates Screen Negative (NEGATIVE) Ur Phencyclidine Scrn Negative (NEGATIVE) Ur Amphetamines Screen Negative (NEGATIVE) U Benzodiazepines Scrn Negative (NEGATIVE) U Oth Cocaine Metabols Negative (NEGATIVE) U Cannabinoids Screen Positive H (NEGATIVE) Alcohol, Quantitative (0-10) mg/dL 05/14/18 05/14/18 05/14/18 Range/Units 16:40 15:45 15:45 WBC (4.5-11.0) 10^3/ul RBC (3.5-6.1) 10^6/uL Hgb (12.0-16.0) g/dL Hct (36.0-48.0) % MCV (80.0-105.0) fl MCH (25.0-35.0) pg MCHC (31.0-37.0) g/dl RDW (11.5-14.5) % Plt Count (120.0-450.0) 10^3/uL MPV (7.0-11.0) fl Gran % (50.0-68.0) % Lymph % (Auto) (22.0-35.0) % Collier % (Auto) (1.0-6.0) % Eos % (Auto) (1.5-5.0) % Baso % (Auto) (0.0-3.0) % Gran # (1.4-6.5) Lymph # (Auto) (1.2-3.4) [place]lier # (Auto) (0.1-0.6) Eos # (Auto) (0.0-0.7) Baso # (Auto) (0.0-2.0) K/mm3 Neutrophils % (Manual) (50.0-70.0) % Lymphocytes % (Manual) (22.0-35.0) % Monocytes % (Manual) (1.0-6.0) % Platelet Evaluation (NORMAL) ESR (0.0-20.0) mm/hr pO2 95 H (30-55) mm/Hg VBG pH 7.29 L (7.32-7.43) VBG pCO2 54.0 (40-60) VBG HCO3 26.0 (21-28) mmol/l VBG Total CO2 27.7 (22-28) mmol.L VBG O2 Sat (Calc) 99.2 H (40-65) % VBG Base Excess -1.4 L (0.0-2.0) mmol/L VBG Potassium 3.5 L (3.6-5.2) mmol/L Glucose 71 (65-105) mg/dl Lactate 1.1 (0.7-2.1) mmol/L FiO2 21.0 % Sodium 141.0 (132-148) mmol/L Potassium (3.6-5.0) mmol/L Chloride 108.0 H (98-107) mmol/L Carbon Dioxide (21-33) mmol/L Anion Gap (10-20) BUN (7-21) mg/dL Creatinine (0.7-1.2) mg/dl Est GFR ( Amer) Est GFR (Non-Af Amer) Random Glucose (70-110) mg/dL Hemoglobin A1c 5.2 (4.2-6.5) % Calcium (8.4-10.5) mg/dL Phosphorus (2.5-4.5) mg/dL Magnesium (1.7-2.2) mg/dL Total Bilirubin (0.2-1.3) mg/dL AST (14-36) U/L ALT (7-56) U/L Alkaline Phosphatase (38-126) U/L Total Protein (5.8-8.3) g/dL Albumin (3.0-4.8) g/dL Globulin gm/dL Albumin/Globulin Ratio (1.1-1.8) Procalcitonin (0.19-0.49) NG/ML Beta HCG, Quant < 2.39 (0-6.15) mIU/mL Venous Blood Potassium 3.5 L (3.6-5.2) mmol/L Urine Color (YELLOW) Urine Appearance (CLEAR) Urine pH (4.7-8.0) Ur Specific [place] (1.005-1.035) Urine Protein (<30 mg/dL) mg/dL Urine Glucose (UA) (NEGATIVE) mg/dL Urine Ketones (NEGATIVE) mg/dL Urine Blood (NEGATIVE) Urine Nitrate (NEGATIVE) Urine Bilirubin (NEGATIVE) Urine Urobilinogen (<1 E.U./dL) E.U./dL Ur Leukocyte Esterase (NEGATIVE) Denzel/uL Urine RBC (0-2) /hpf Urine WBC (0-6) /hpf Urine Bacteria (NEG) Salicylates (2.0-20.0) mg/dL Urine Opiates Screen (NEGATIVE) Urine Methadone Screen (NEGATIVE) Acetaminophen (10.0-20.0) ug/ml Ur Barbiturates Screen (NEGATIVE) Ur Phencyclidine Scrn (NEGATIVE) Ur Amphetamines Screen (NEGATIVE) U Benzodiazepines Scrn (NEGATIVE) U Oth Cocaine Metabols (NEGATIVE) U Cannabinoids Screen (NEGATIVE) Alcohol, Quantitative (0-10) mg/dL 05/14/18 05/14/18 05/14/18 Range/Units 15:45 15:45 15:45 WBC (4.5-11.0) 10^3/ul RBC (3.5-6.1) 10^6/uL Hgb (12.0-16.0) g/dL Hct (36.0-48.0) % MCV (80.0-105.0) fl MCH (25.0-35.0) pg MCHC (31.0-37.0) g/dl RDW (11.5-14.5) % Plt Count (120.0-450.0) 10^3/uL MPV (7.0-11.0) fl Gran % (50.0-68.0) % Lymph % (Auto) (22.0-35.0) % [place] % (Auto) (1.0-6.0) % Eos % (Auto) (1.5-5.0) % Baso % (Auto) (0.0-3.0) % Gran # (1.4-6.5) Lymph # (Auto) (1.2-3.4) [place] # (Auto) (0.1-0.6) Eos # (Auto) (0.0-0.7) Baso # (Auto) (0.0-2.0) K/mm3 Neutrophils % (Manual) (50.0-70.0) % Lymphocytes % (Manual) (22.0-35.0) % Monocytes % (Manual) (1.0-6.0) % Platelet Evaluation (NORMAL) ESR (0.0-20.0) mm/hr pO2 (30-55) mm/Hg VBG pH (7.32-7.43) VBG pCO2 (40-60) VBG HCO3 (21-28) mmol/l VBG Total CO2 (22-28) mmol.L VBG O2 Sat (Calc) (40-65) % VBG Base Excess (0.0-2.0) mmol/L VBG Potassium (3.6-5.2) mmol/L Glucose (65-105) mg/dl Lactate (0.7-2.1) mmol/L FiO2 % Sodium 141 (132-148) mmol/L Potassium 3.7 (3.6-5.0) mmol/L Chloride 104 (98-107) mmol/L Carbon Dioxide 26 (21-33) mmol/L Anion Gap 15 (10-20) BUN 16 (7-21) mg/dL Creatinine 0.7 (0.7-1.2) mg/dl Est GFR ( Amer) > 60 Est GFR (Non-Af Amer) > 60 Random Glucose 73 (70-110) mg/dL Hemoglobin A1c (4.2-6.5) % Calcium 9.0 (8.4-10.5) mg/dL Phosphorus (2.5-4.5) mg/dL Magnesium (1.7-2.2) mg/dL Total Bilirubin 0.2 (0.2-1.3) mg/dL AST 44 H (14-36) U/L ALT 32 (7-56) U/L Alkaline Phosphatase 55 (38-126) U/L Total Protein 7.7 (5.8-8.3) g/dL Albumin 4.9 H (3.0-4.8) g/dL Globulin 2.8 gm/dL Albumin/Globulin Ratio 1.8 (1.1-1.8) Procalcitonin (0.19-0.49) NG/ML Beta HCG, Quant (0-6.15) mIU/mL Venous Blood Potassium (3.6-5.2) mmol/L Urine Color (YELLOW) Urine Appearance (CLEAR) Urine pH (4.7-8.0) Ur Specific [place] (1.005-1.035) Urine Protein (<30 mg/dL) mg/dL Urine Glucose (UA) (NEGATIVE) mg/dL Urine Ketones (NEGATIVE) mg/dL Urine Blood (NEGATIVE) Urine Nitrate (NEGATIVE) Urine Bilirubin (NEGATIVE) Urine Urobilinogen (<1 E.U./dL) E.U./dL Ur Leukocyte Esterase (NEGATIVE) Denzel/uL Urine RBC (0-2) /hpf Urine WBC (0-6) /hpf Urine Bacteria (NEG) Salicylates < 1 L (2.0-20.0) mg/dL Urine Opiates Screen (NEGATIVE) Urine Methadone Screen (NEGATIVE) Acetaminophen < 10.0 L (10.0-20.0) ug/ml Ur Barbiturates Screen (NEGATIVE) Ur Phencyclidine Scrn (NEGATIVE) Ur Amphetamines Screen (NEGATIVE) U Benzodiazepines Scrn (NEGATIVE) U Oth Cocaine Metabols (NEGATIVE) U Cannabinoids Screen (NEGATIVE) Alcohol, Quantitative < 10 (0-10) mg/dL 05/14/18 Range/Units 15:45 WBC 31.5 H* (4.5-11.0) 10^3/ul RBC 4.43 (3.5-6.1) 10^6/uL Hgb 13.1 (12.0-16.0) g/dL Hct 37.8 (36.0-48.0) % MCV 85.3 (80.0-105.0) fl MCH 29.6 (25.0-35.0) pg MCHC 34.7 (31.0-37.0) g/dl RDW 12.7 (11.5-14.5) % Plt Count 359 (120.0-450.0) 10^3/uL MPV 10.0 (7.0-11.0) fl Gran % 82.4 H (50.0-68.0) % Lymph % (Auto) 8.4 L (22.0-35.0) % [place] % (Auto) 9.0 H (1.0-6.0) % Eos % (Auto) 0.1 L (1.5-5.0) % Baso % (Auto) 0.1 (0.0-3.0) % Gran # 25.99 H (1.4-6.5) Lymph # (Auto) 2.7 (1.2-3.4) [place] # (Auto) 2.8 H (0.1-0.6) Eos # (Auto) 0.0 (0.0-0.7) Baso # (Auto) 0.02 (0.0-2.0) K/mm3 Neutrophils % (Manual) 84 H (50.0-70.0) % Lymphocytes % (Manual) 13 L (22.0-35.0) % Monocytes % (Manual) 3 (1.0-6.0) % Platelet Evaluation Normal (NORMAL) ESR (0.0-20.0) mm/hr pO2 (30-55) mm/Hg VBG pH (7.32-7.43) VBG pCO2 (40-60) VBG HCO3 (21-28) mmol/l VBG Total CO2 (22-28) mmol.L VBG O2 Sat (Calc) (40-65) % VBG Base Excess (0.0-2.0) mmol/L VBG Potassium (3.6-5.2) mmol/L Glucose (65-105) mg/dl Lactate (0.7-2.1) mmol/L FiO2 % Sodium (132-148) mmol/L Potassium (3.6-5.0) mmol/L Chloride (98-107) mmol/L Carbon Dioxide (21-33) mmol/L Anion Gap (10-20) BUN (7-21) mg/dL Creatinine (0.7-1.2) mg/dl Est GFR ( Amer) Est GFR (Non-Af Amer) Random Glucose (70-110) mg/dL Hemoglobin A1c (4.2-6.5) % Calcium (8.4-10.5) mg/dL Phosphorus (2.5-4.5) mg/dL Magnesium (1.7-2.2) mg/dL Total Bilirubin (0.2-1.3) mg/dL AST (14-36) U/L ALT (7-56) U/L Alkaline Phosphatase (38-126) U/L Total Protein (5.8-8.3) g/dL Albumin (3.0-4.8) g/dL Globulin gm/dL Albumin/Globulin Ratio (1.1-1.8) Procalcitonin (0.19-0.49) NG/ML Beta HCG, Quant (0-6.15) mIU/mL Venous Blood Potassium (3.6-5.2) mmol/L Urine Color (YELLOW) Urine Appearance (CLEAR) Urine pH (4.7-8.0) Ur Specific [place] (1.005-1.035) Urine Protein (<30 mg/dL) mg/dL Urine Glucose (UA) (NEGATIVE) mg/dL Urine Ketones (NEGATIVE) mg/dL Urine Blood (NEGATIVE) Urine Nitrate (NEGATIVE) Urine Bilirubin (NEGATIVE) Urine Urobilinogen (<1 E.U./dL) E.U./dL Ur Leukocyte Esterase (NEGATIVE) Denzel/uL Urine RBC (0-2) /hpf Urine WBC (0-6) /hpf Urine Bacteria (NEG) Salicylates (2.0-20.0) mg/dL Urine Opiates Screen (NEGATIVE) Urine Methadone Screen (NEGATIVE) Acetaminophen (10.0-20.0) ug/ml Ur Barbiturates Screen (NEGATIVE) Ur Phencyclidine Scrn (NEGATIVE) Ur Amphetamines Screen (NEGATIVE) U Benzodiazepines Scrn (NEGATIVE) U Oth Cocaine Metabols (NEGATIVE) U Cannabinoids Screen (NEGATIVE) Alcohol, Quantitative (0-10) mg/dL Laboratory Results - last 24 hr 05/14/18 05/14/18 05/14/18 15:45 15:45 15:45 WBC 31.5 H* RBC 4.43 Hgb 13.1 Hct 37.8 MCV 85.3 MCH 29.6 MCHC 34.7 RDW 12.7 Plt Count 359 MPV 10.0 Gran % 82.4 H Lymph % (Auto) 8.4 L [place] % (Auto) 9.0 H Eos % (Auto) 0.1 L Baso % (Auto) 0.1 Gran # 25.99 H Lymph # (Auto) 2.7 [place] # (Auto) 2.8 H Eos # (Auto) 0.0 Baso # (Auto) 0.02 Neutrophils % (Manual) 84 H Lymphocytes % (Manual) 13 L Monocytes % (Manual) 3 Platelet Evaluation Normal ESR pO2 VBG pH VBG pCO2 VBG HCO3 VBG Total CO2 VBG O2 Sat (Calc) VBG Base Excess VBG Potassium Glucose Lactate FiO2 Sodium 141 Potassium 3.7 Chloride 104 Carbon Dioxide 26 Anion Gap 15 BUN 16 Creatinine 0.7 Est GFR ( Amer) > 60 Est GFR (Non-Af Amer) > 60 Random Glucose 73 Hemoglobin A1c Calcium 9.0 Phosphorus Magnesium Total Bilirubin 0.2 AST 44 H ALT 32 Alkaline Phosphatase 55 Total Protein 7.7 Albumin 4.9 H Globulin 2.8 Albumin/Globulin Ratio 1.8 Procalcitonin Beta HCG, Quant Venous Blood Potassium Urine Color Urine Appearance Urine pH Ur Specific [place] Urine Protein Urine Glucose (UA) Urine Ketones Urine Blood Urine Nitrate Urine Bilirubin Urine Urobilinogen Ur Leukocyte Esterase Urine RBC Urine WBC Urine Bacteria Salicylates < 1 L Urine Opiates Screen Urine Methadone Screen Acetaminophen < 10.0 L Ur Barbiturates Screen Ur Phencyclidine Scrn Ur Amphetamines Screen U Benzodiazepines Scrn U Oth Cocaine Metabols U Cannabinoids Screen Alcohol, Quantitative 05/14/18 05/14/18 05/14/18 15:45 15:45 15:45 WBC RBC Hgb Hct MCV MCH MCHC RDW Plt Count MPV Gran % Lymph % (Auto) [place] % (Auto) Eos % (Auto) Baso % (Auto) Gran # Lymph # (Auto) [place] # (Auto) Eos # (Auto) Baso # (Auto) Neutrophils % (Manual) Lymphocytes % (Manual) Monocytes % (Manual) Platelet Evaluation ESR pO2 VBG pH VBG pCO2 VBG HCO3 VBG Total CO2 VBG O2 Sat (Calc) VBG Base Excess VBG Potassium Glucose Lactate FiO2 Sodium Potassium Chloride Carbon Dioxide Anion Gap BUN Creatinine Est GFR ( Amer) Est GFR (Non-Af Amer) Random Glucose Hemoglobin A1c 5.2 Calcium Phosphorus Magnesium Total Bilirubin AST ALT Alkaline Phosphatase Total Protein Albumin Globulin Albumin/Globulin Ratio Procalcitonin Beta HCG, Quant < 2.39 Venous Blood Potassium Urine Color Urine Appearance Urine pH Ur Specific [place] Urine Protein Urine Glucose (UA) Urine Ketones Urine Blood Urine Nitrate Urine Bilirubin Urine Urobilinogen Ur Leukocyte Esterase Urine RBC Urine WBC Urine Bacteria Salicylates Urine Opiates Screen Urine Methadone Screen Acetaminophen Ur Barbiturates Screen Ur Phencyclidine Scrn Ur Amphetamines Screen U Benzodiazepines Scrn U Oth Cocaine Metabols U Cannabinoids Screen Alcohol, Quantitative < 10 05/14/18 05/14/18 05/14/18 16:40 16:55 16:55 WBC RBC Hgb Hct MCV MCH MCHC RDW Plt Count MPV Gran % Lymph % (Auto) [place] % (Auto) Eos % (Auto) Baso % (Auto) Gran # Lymph # (Auto) [place] # (Auto) Eos # (Auto) Baso # (Auto) Neutrophils % (Manual) Lymphocytes % (Manual) Monocytes % (Manual) Platelet Evaluation ESR pO2 95 H VBG pH 7.29 L VBG pCO2 54.0 VBG HCO3 26.0 VBG Total CO2 27.7 VBG O2 Sat (Calc) 99.2 H VBG Base Excess -1.4 L VBG Potassium 3.5 L Glucose 71 Lactate 1.1 FiO2 21.0 Sodium 141.0 Potassium Chloride 108.0 H Carbon Dioxide Anion Gap BUN Creatinine Est GFR ( Amer) Est GFR (Non-Af Amer) Random Glucose Hemoglobin A1c Calcium Phosphorus Magnesium Total Bilirubin AST ALT Alkaline Phosphatase Total Protein Albumin Globulin Albumin/Globulin Ratio Procalcitonin Beta HCG, Quant Venous Blood Potassium 3.5 L Urine Color Yellow Urine Appearance Sl cloudy Urine pH 6.0 Ur Specific [place] >= 1.030 Urine Protein 30 H Urine Glucose (UA) 250 H Urine Ketones Trace H Urine Blood Negative Urine Nitrate Negative Urine Bilirubin Negative Urine Urobilinogen 0.2 Ur Leukocyte Esterase Negative Urine RBC Negative Urine WBC 0 - 2 Urine Bacteria Many Salicylates Urine Opiates Screen Negative Urine Methadone Screen Negative Acetaminophen Ur Barbiturates Screen Negative Ur Phencyclidine Scrn Negative Ur Amphetamines Screen Negative U Benzodiazepines Scrn Negative U Oth Cocaine Metabols Negative U Cannabinoids Screen Positive H Alcohol, Quantitative 05/15/18 05/15/18 05/15/18 06:00 06:00 06:00 WBC 9.4 D RBC 4.12 Hgb 12.0 Hct 35.6 L MCV 86.4 MCH 29.1 MCHC 33.7 RDW 12.7 Plt Count 264 MPV 10.2 Gran % 85.7 H Lymph % (Auto) 12.6 L [place] % (Auto) 1.7 Eos % (Auto) 0.0 L Baso % (Auto) 0.0 Gran # 8.05 H Lymph # (Auto) 1.2 [place] # (Auto) 0.2 Eos # (Auto) 0.0 Baso # (Auto) 0.00 Neutrophils % (Manual) Lymphocytes % (Manual) Monocytes % (Manual) Platelet Evaluation ESR pO2 VBG pH VBG pCO2 VBG HCO3 VBG Total CO2 VBG O2 Sat (Calc) VBG Base Excess VBG Potassium Glucose Lactate FiO2 Sodium 136 Potassium 4.6 Chloride 106 Carbon Dioxide 21 Anion Gap 14 BUN 10 Creatinine 0.6 L Est GFR ( Amer) > 60 Est GFR (Non-Af Amer) > 60 Random Glucose 91 Hemoglobin A1c Calcium 8.8 Phosphorus 3.2 Magnesium 1.9 Total Bilirubin 0.3 AST 50 H ALT 34 Alkaline Phosphatase 44 Total Protein 6.2 Albumin 3.8 Globulin 2.4 Albumin/Globulin Ratio 1.6 Procalcitonin 0.55 H Beta HCG, Quant Venous Blood Potassium Urine Color Urine Appearance Urine pH Ur Specific [place] Urine Protein Urine Glucose (UA) Urine Ketones Urine Blood Urine Nitrate Urine Bilirubin Urine Urobilinogen Ur Leukocyte Esterase Urine RBC Urine WBC Urine Bacteria Salicylates Urine Opiates Screen Urine Methadone Screen Acetaminophen Ur Barbiturates Screen Ur Phencyclidine Scrn Ur Amphetamines Screen U Benzodiazepines Scrn U Oth Cocaine Metabols U Cannabinoids Screen Alcohol, Quantitative 05/15/18 12:10 WBC RBC Hgb Hct MCV MCH MCHC RDW Plt Count MPV Gran % Lymph % (Auto) Collier % (Auto) Eos % (Auto) Baso % (Auto) Gran # Lymph # (Auto) [place]lier # (Auto) Eos # (Auto) Baso # (Auto) Neutrophils % (Manual) Lymphocytes % (Manual) Monocytes % (Manual) Platelet Evaluation ESR 3 pO2 VBG pH VBG pCO2 VBG HCO3 VBG Total CO2 VBG O2 Sat (Calc) VBG Base Excess VBG Potassium Glucose Lactate FiO2 Sodium Potassium Chloride Carbon Dioxide Anion Gap BUN Creatinine Est GFR ( Amer) Est GFR (Non-Af Amer) Random Glucose Hemoglobin A1c Calcium Phosphorus Magnesium Total Bilirubin AST ALT Alkaline Phosphatase Total Protein Albumin Globulin Albumin/Globulin Ratio Procalcitonin Beta HCG, Quant Venous Blood Potassium Urine Color Urine Appearance Urine pH Ur Specific [place] Urine Protein Urine Glucose (UA) Urine Ketones Urine Blood Urine Nitrate Urine Bilirubin Urine Urobilinogen Ur Leukocyte Esterase Urine RBC Urine WBC Urine Bacteria Salicylates Urine Opiates Screen Urine Methadone Screen Acetaminophen Ur Barbiturates Screen Ur Phencyclidine Scrn Ur Amphetamines Screen U Benzodiazepines Scrn U Oth Cocaine Metabols U Cannabinoids Screen Alcohol, Quantitative EKG/Cardiology Studies: Cardiology / EKG Studies 05/14/18 15:18 ELECTROCARDIOGRAM Stat Comment: Reason For Exam: anxiety Critical Care Progress Note - Nutrition Nutrition: Nutrition Category Date Time Status Regular Diet [DIET] Diets 05/15/18 Lunch Ordered Addendum Addendum: 05/15/18 13:53 ICU Attending Addendum: Patient seen and examined. Case reviewed on round with housestaff. Agree with resident note above with the following additions/exceptions: 28 F with past medical history of anxiety and sciatica presents with left leg weakness and numbness possibly sciatic nerve related. MRI shows no acute process leukocytosis improved, no signs of infection does not offer risk factors for spinal abscess left leg much improved today in terms of strength and sensatoin f/u neuro recs Ok for transfer out of ICU rest of care above Celestine Prasad MD [facility]
--- NOTE | 2018-05-15 08:35 | CT ---
Date of service: 05/14/2018 PROCEDURE: CT Abdomen and Pelvis with contrast HISTORY: back pain, fever, vomiting COMPARISON: 11/14/2013 TECHNIQUE: Contrast dose: 95 cc of Omni 350 Radiation dose: Total exam DLP = 353 mGy-cm. This CT exam was performed using one or more of the following dose reduction techniques: Automated exposure control, adjustment of the mA and/or kV according to patient size, and/or use of iterative reconstruction technique. FINDINGS: LOWER THORAX: Unremarkable. LIVER: Unremarkable. No gross lesion or ductal dilatation. GALLBLADDER AND BILE DUCTS: There is a small amount of pericholecystic fluid. No obvious stones. Ultrasound may be indicated. PANCREAS: Unremarkable. No gross lesion or ductal dilatation. SPLEEN: Unremarkable. ADRENALS: There is an 18 x 26 mm low-density lesion in the right adrenal gland consistent with adenoma KIDNEYS AND URETERS: Unremarkable. No hydronephrosis. No solid mass. VASCULATURE: Unremarkable. No aortic aneurysm. BOWEL: Unremarkable. No obstruction. No gross mural thickening. APPENDIX: Normal appendix. PERITONEUM: Unremarkable. No free fluid. No free air. LYMPH NODES: Unremarkable. No enlarged lymph nodes. BLADDER: Unremarkable. REPRODUCTIVE: Bilateral ovarian cysts. Small amount of fluid in the cul-de-sac BONES: No acute fracture. OTHER FINDINGS: The report concurs with the preliminary report IMPRESSION: Minimal pericholecystic fluid. Possible cholecystitis. Ultrasound may be indicated.
--- NOTE | 2018-05-15 09:53 | RAD ---
Date of service: 05/14/2018 HISTORY: chest pain/back pain, leg numbness COMPARISON: No prior. FINDINGS: LUNGS: The lungs are well inflated and clear. PLEURA: No significant pleural effusion identified, no pneumothorax apparent. CARDIOVASCULAR: Normal. OSSEOUS STRUCTURES: No significant abnormalities. VISUALIZED UPPER ABDOMEN: Normal. OTHER FINDINGS: None. IMPRESSION: No active pulmonary disease.
--- NOTE | 2018-05-15 13:13 | US ---
Date of service: 05/15/2018 HISTORY: r/o cholecystitis COMPARISON: CT abdomen and pelvis from 05/14/2018. TECHNIQUE: Grayscale imaging was performed. FINDINGS: LIVER: Measures 14.2 cm. Normal echogenicity of the liver parenchyma. No mass. No intrahepatic bile duct dilatation. GALLBLADDER: There are no gallstones, wall thickening or pericholecystic fluid. The sonographic Ewing's sign is negative. COMMON BILE DUCT: Measures 6.2 mm. No stones. No dilatation. PANCREAS: Unremarkable as visualized. No mass. No ductal dilatation. RIGHT KIDNEY: Measures 12.0cm. Normal echogenicity. No calculus, mass, or hydronephrosis. There is a 2.4 x 1.5 x 2.5 cm simple cyst in the upper pole. LEFT KIDNEY: Measures 10.8cm. Normal echogenicity. No mass, or hydronephrosis. There is a 10 mm simple cyst in the upper pole and 14 x 14 x 15 mm simple cysts in the interpolar region. SPLEEN: Normal in size and contour. No mass. AORTA: No aneurysmal dilatation. IVC: Unremarkable. OTHER FINDINGS: None. IMPRESSION: No cholelithiasis or biliary dilatation. No sonographic evidence for acute cholecystitis.
--- NOTE | 2018-05-15 13:59 | CP.PCM.PN ---
<Galilea Wilburn - Last Filed: 05/15/18 15:26> Subjective - Date & Time of Evaluation Date of Evaluation: 05/15/18 Time of Evaluation: 09:00 - Subjective Subjective: PGY-1 Galilea Wilburn D.O. Medicine progress note for Dr. Bolton service: Patient was seen and examined this morning. She is complaining of L buttock and leg pain. Patient has not yet attempted to stand since being admitted. She has full bowel and bladder control. Patient states that she has had L sciatica for about 1 month. She cannot recall a triggering event. She has seen her PMD and has taken Flexeril with minimal relief. She also received a referral to PT but has not yet made an appointment. Patient endorses generalized anxiety and panic attacks for many years, but she has not taken any medication for over a year. She has an appointment with a new psychiatrist next week and does not wish to speak with one while inpatient. Patient also endorses smoking marijuana daily. She does not work and lives with her and children. She denies chest pain, headache, SOB, fevers or chills. Objective - Vital Signs/Intake and Output Vital Signs (last 24 hours): Temp Pulse Resp BP Pulse Ox 97.6 F 80 22 106/61 98 05/15/18 04:00 05/15/18 07:00 05/15/18 06:20 05/15/18 06:00 05/15/18 06:20 Intake and Output: 05/15/18 05/15/18 06:59 18:59 Intake Total 750 120 Output Total 450 500 Balance 300 -380 - Medications Medications: Current Medications Acetaminophen (Tylenol 325mg Tab) 650 mg PO Q6H PRN PRN Reason: Pain, Mild (1-3) Last Admin: 05/15/18 10:34 Dose: 650 mg Alprazolam (Xanax) 0.5 mg PO BID PRN; Protocol PRN Reason: Anxiety Cyclobenzaprine HCl (Flexeril) 5 mg PO TID PRN PRN Reason: Muscle spasm Dexamethasone (Decadron) 4 mg PO Q8 [facility] Famotidine (Pepcid) 20 mg PO 1000,2200 [facility] Last Admin: 05/15/18 10:34 Dose: 20 mg Vancomycin HCl (Vancomycin 1gm) 1 gm in 250 mls @ 167 mls/hr IVPB Q12H [facility]; Protocol Last Admin: 05/15/18 10:35 Dose: 167 mls/hr - Labs Labs: 05/15/18 06:00 05/15/18 06:00 - Constitutional Appears: Non-toxic, No Acute Distress - Head Exam Head Exam: ATRAUMATIC, NORMAL INSPECTION - Eye Exam Eye Exam: EOMI, Normal appearance, PERRL - ENT Exam ENT Exam: Mucous Membranes Moist, Normal Exam - Neck Exam Neck Exam: Full ROM, Normal Inspection - Respiratory Exam Respiratory Exam: Clear to Ausculation Bilateral, NORMAL BREATHING PATTERN - Cardiovascular Exam Cardiovascular Exam: REGULAR RHYTHM, +S1, +S2 - GI/Abdominal Exam GI & Abdominal Exam: Soft, Normal Bowel Sounds - Rectal Exam Rectal Exam: Deferred - Extremities Exam Extremities Exam: Normal Capillary Refill, Normal Inspection - Back Exam Back Exam: NORMAL INSPECTION - Neurological Exam Neurological Exam: Alert, Awake, CN II-XII Intact, Oriented x3 Neuro motor strength exam: Left Upper Extremity: 5, Right Upper Extremity: 5, Left Lower Extremity: 4, Right Lower Extremity: 5 - Psychiatric Exam Psychiatric exam: Anxious - Skin Skin Exam: Dry, Intact, Normal Color, Warm Assessment and Plan - Assessment and Plan (Free Text) Assessment: Patient is a 28 you female with a history of anxiety and L sciatica who presente d to the ED with LLE pain and numbness with the inability to walk. Patient was initially managed in the ICU to r/o cauda equina (patient reported possible urinary retention) and significant leukocytosis (31). Patients lumbar MRI was negative, she has full bowel/bladder control, and her leukocytosis resolved. Therefore, she was downgraded to med/surg for further management of leg pain and paresthesia. Plan: LLE weakness and paresthesia- 2/2 disc protrusion - Lumbar spine MRI: L5-S1 minimal central disc protrusion and radial tear - Tylenol 650 mg PO Q6H PRN - Flexeril 5 mg PO TID PRN - Decadron 4 mg PO Q8H - Warm compresses - Neurology consulted (Mele) - Neurosurgery consulted (Damien) - PT Leukocytosis, resolved- 31.5-->9.4 - LA 1.1, procal 0.55 - Afebrile - CT abd pelvis: Mild periportal edema and pericholecystic fluid. may represent fluid overload versus hepatitis. 2.3 cm low density nodule is noted in the right adrenal gland consistent with an adenoma. Several small bilateral renal cysts are present. - Abd u/s: negative - Vancomycin 1g IV Q12H - ID consulted (Dann) Anxiety- not on meds - Patient declined to speak with psychiatrist while inpatient IVF: not indicated Diet: regular GI ppx: Pepcid 20 mg PO BID VTE ppx: COde status: full code Case discussed with attending, Dr. Reardon. <Breanna Reardon - Last Filed: 05/16/18 19:20> Objective - Vital Signs/Intake and Output Vital Signs (last 24 hours): Temp Pulse Resp BP Pulse Ox 99 F 108 H 18 100/57 L 97 05/16/18 14:00 05/16/18 14:00 05/16/18 14:00 05/16/18 14:00 05/16/18 14:00 Intake and Output: 05/16/18 05/17/18 18:59 06:59 Intake Total 660 Balance 660 - Labs Labs: 05/16/18 06:00 05/16/18 06:00 Attending/Attestation - Attestation I have personally seen and examined this patient.: Yes I have fully participated in the care of the patient.: Yes I have reviewed all pertinent clinical information, including history, physical exam and plan: Yes Notes (Text): 05/16/18 19:17 attending note; Patient seen and examined with resident In ICU. Patient is complaining of left leg numbness and pain. Not in any acute distress. Denies any urinary incontinence or retention. Denies any saddle anesthesia. Patient is a 28 year old female with a history of anxiety and L sciatica who presented to the ED with LLE pain and numbness with the inability to walk. Pa aashish was initially managed in the ICU to r/o cauda equina (patient reported possible urinary retention) and significant leukocytosis (31). MRI of the lumbosacral spine preliminary report is negative for cardiac equina syndrome. Started on Decadron, Flexeril. Pain management with Toradol. PT evaluation requested. Neurology evaluation requested. leukocytosis; with no signs of infection. No fevers or chills. Procalcitonin ordered. continue vancomycin. Currently no source of infection. Upon discharge the patient will follow-up with PMD Dr. Blas. 05/16/18 19:19
--- NOTE | 2018-05-15 14:10 | CP.PCM.CON ---
History of Present Illness - History of Present Illness History of Present Illness: Neurology consult dictated. Plan: 1. MRI brain with contrast 2. Physical therapy. Dr. mcmahon Past Patient History - Infectious Disease Hx of Infectious Diseases: None - Tetanus Immunizations Tetanus Immunization: Unknown - Past Social History Smoking Status: Current Some Days Smoker - CARDIAC Hx Pacemaker: No - PULMONARY Hx Respiratory Disorders: No - NEUROLOGICAL Hx Neurological Disorder: No - HEENT Hx HEENT Problems: No (WEARS RX GLASSES) - RENAL Hx Chronic Kidney Disease: Yes Hx Kidney Stones: Yes - ENDOCRINE/METABOLIC Hx Endocrine Disorders: No - HEMATOLOGICAL/ONCOLOGICAL Hx Blood Transfusions: No Hx Blood Transfusion Reaction: No - INTEGUMENTARY Hx Dermatological Problems: No - MUSCULOSKELETAL/RHEUMATOLOGICAL Hx Musculoskeletal Disorders: No - GASTROINTESTINAL Hx Gastrointestinal Disorders: No - GENITOURINARY/GYNECOLOGICAL Hx Genitourinary Disorders: No ( X 1) Other/Comment: 17 MONTHS AGO - PSYCHIATRIC Hx Substance Use: No - SURGICAL HISTORY Hx Appendectomy: Yes - ANESTHESIA Hx Anesthesia Reactions: No Hx Malignant Hyperthermia: No Meds Allergies/Adverse Reactions: Allergies Allergy/AdvReac Type Severity Reaction Status Date / Time cefaclor [From [facility]] Allergy RASH Verified 05/14/18 14:46 - Medications Medications: Current Medications Acetaminophen (Tylenol 325mg Tab) 650 mg PO Q6H PRN PRN Reason: Pain, Mild (1-3) Last Admin: 05/15/18 10:34 Dose: 650 mg Alprazolam (Xanax) 0.5 mg PO BID PRN; Protocol PRN Reason: Anxiety Cyclobenzaprine HCl (Flexeril) 5 mg PO TID PRN PRN Reason: Muscle spasm Dexamethasone (Decadron) 4 mg PO Q8 [facility]AN Famotidine (Pepcid) 20 mg PO 1000,2200 [facility] Last Admin: 05/15/18 10:34 Dose: 20 mg Vancomycin HCl (Vancomycin 1gm) 1 gm in 250 mls @ 167 mls/hr IVPB Q12H [facility]; Protocol Last Admin: 05/15/18 10:35 Dose: 167 mls/hr Results - Vital Signs Recent Vital Signs: Last Vital Signs Temp 97.6 F 05/15/18 04:00 Pulse 80 05/15/18 07:00 Resp 22 05/15/18 06:20 BP 106/61 05/15/18 06:00 Pulse Ox 98 05/15/18 06:20 - Labs Result Diagrams: 05/15/18 06:00 05/15/18 06:00 Labs: Laboratory Results - last 24 hr 05/14/18 05/14/18 05/14/18 15:45 15:45 15:45 WBC 31.5 H* RBC 4.43 Hgb 13.1 Hct 37.8 MCV 85.3 MCH 29.6 MCHC 34.7 RDW 12.7 Plt Count 359 MPV 10.0 Gran % 82.4 H Lymph % (Auto) 8.4 L [place] % (Auto) 9.0 H Eos % (Auto) 0.1 L Baso % (Auto) 0.1 Gran # 25.99 H Lymph # (Auto) 2.7 [place] # (Auto) 2.8 H Eos # (Auto) 0.0 Baso # (Auto) 0.02 Neutrophils % (Manual) 84 H Lymphocytes % (Manual) 13 L Monocytes % (Manual) 3 Platelet Evaluation Normal ESR pO2 VBG pH VBG pCO2 VBG HCO3 VBG Total CO2 VBG O2 Sat (Calc) VBG Base Excess VBG Potassium Glucose Lactate FiO2 Sodium 141 Potassium 3.7 Chloride 104 Carbon Dioxide 26 Anion Gap 15 BUN 16 Creatinine 0.7 Est GFR ( Amer) > 60 Est GFR (Non-Af Amer) > 60 Random Glucose 73 Hemoglobin A1c Calcium 9.0 Phosphorus Magnesium Total Bilirubin 0.2 AST 44 H ALT 32 Alkaline Phosphatase 55 Total Protein 7.7 Albumin 4.9 H Globulin 2.8 Albumin/Globulin Ratio 1.8 Procalcitonin Beta HCG, Quant Venous Blood Potassium Urine Color Urine Appearance Urine pH Ur Specific [place] Urine Protein Urine Glucose (UA) Urine Ketones Urine Blood Urine Nitrate Urine Bilirubin Urine Urobilinogen Ur Leukocyte Esterase Urine RBC Urine WBC Urine Bacteria Salicylates < 1 L Urine Opiates Screen Urine Methadone Screen Acetaminophen < 10.0 L Ur Barbiturates Screen Ur Phencyclidine Scrn Ur Amphetamines Screen U Benzodiazepines Scrn U Oth Cocaine Metabols U Cannabinoids Screen Alcohol, Quantitative 05/14/18 05/14/18 05/14/18 15:45 15:45 15:45 WBC RBC Hgb Hct MCV MCH MCHC RDW Plt Count MPV Gran % Lymph % (Auto) [place] % (Auto) Eos % (Auto) Baso % (Auto) Gran # Lymph # (Auto) [place] # (Auto) Eos # (Auto) Baso # (Auto) Neutrophils % (Manual) Lymphocytes % (Manual) Monocytes % (Manual) Platelet Evaluation ESR pO2 VBG pH VBG pCO2 VBG HCO3 VBG Total CO2 VBG O2 Sat (Calc) VBG Base Excess VBG Potassium Glucose Lactate FiO2 Sodium Potassium Chloride Carbon Dioxide Anion Gap BUN Creatinine Est GFR ( Amer) Est GFR (Non-Af Amer) Random Glucose Hemoglobin A1c 5.2 Calcium Phosphorus Magnesium Total Bilirubin AST ALT Alkaline Phosphatase Total Protein Albumin Globulin Albumin/Globulin Ratio Procalcitonin Beta HCG, Quant < 2.39 Venous Blood Potassium Urine Color Urine Appearance Urine pH Ur Specific [place] Urine Protein Urine Glucose (UA) Urine Ketones Urine Blood Urine Nitrate Urine Bilirubin Urine Urobilinogen Ur Leukocyte Esterase Urine RBC Urine WBC Urine Bacteria Salicylates Urine Opiates Screen Urine Methadone Screen Acetaminophen Ur Barbiturates Screen Ur Phencyclidine Scrn Ur Amphetamines Screen U Benzodiazepines Scrn U Oth Cocaine Metabols U Cannabinoids Screen Alcohol, Quantitative < 10 05/14/18 05/14/18 05/14/18 16:40 16:55 16:55 WBC RBC Hgb Hct MCV MCH MCHC RDW Plt Count MPV Gran % Lymph % (Auto) [place] % (Auto) Eos % (Auto) Baso % (Auto) Gran # Lymph # (Auto) [place] # (Auto) Eos # (Auto) Baso # (Auto) Neutrophils % (Manual) Lymphocytes % (Manual) Monocytes % (Manual) Platelet Evaluation ESR pO2 95 H VBG pH 7.29 L VBG pCO2 54.0 VBG HCO3 26.0 VBG Total CO2 27.7 VBG O2 Sat (Calc) 99.2 H VBG Base Excess -1.4 L VBG Potassium 3.5 L Glucose 71 Lactate 1.1 FiO2 21.0 Sodium 141.0 Potassium Chloride 108.0 H Carbon Dioxide Anion Gap BUN Creatinine Est GFR ( Amer) Est GFR (Non-Af Amer) Random Glucose Hemoglobin A1c Calcium Phosphorus Magnesium Total Bilirubin AST ALT Alkaline Phosphatase Total Protein Albumin Globulin Albumin/Globulin Ratio Procalcitonin Beta HCG, Quant Venous Blood Potassium 3.5 L Urine Color Yellow Urine Appearance Sl cloudy Urine pH 6.0 Ur Specific [place] >= 1.030 Urine Protein 30 H Urine Glucose (UA) 250 H Urine Ketones Trace H Urine Blood Negative Urine Nitrate Negative Urine Bilirubin Negative Urine Urobilinogen 0.2 Ur Leukocyte Esterase Negative Urine RBC Negative Urine WBC 0 - 2 Urine Bacteria Many Salicylates Urine Opiates Screen Negative Urine Methadone Screen Negative Acetaminophen Ur Barbiturates Screen Negative Ur Phencyclidine Scrn Negative Ur Amphetamines Screen Negative U Benzodiazepines Scrn Negative U Oth Cocaine Metabols Negative U Cannabinoids Screen Positive H Alcohol, Quantitative 05/15/18 05/15/18 05/15/18 06:00 06:00 06:00 WBC 9.4 D RBC 4.12 Hgb 12.0 Hct 35.6 L MCV 86.4 MCH 29.1 MCHC 33.7 RDW 12.7 Plt Count 264 MPV 10.2 Gran % 85.7 H Lymph % (Auto) 12.6 L [place] % (Auto) 1.7 Eos % (Auto) 0.0 L Baso % (Auto) 0.0 Gran # 8.05 H Lymph # (Auto) 1.2 [place] # (Auto) 0.2 Eos # (Auto) 0.0 Baso # (Auto) 0.00 Neutrophils % (Manual) Lymphocytes % (Manual) Monocytes % (Manual) Platelet Evaluation ESR pO2 VBG pH VBG pCO2 VBG HCO3 VBG Total CO2 VBG O2 Sat (Calc) VBG Base Excess VBG Potassium Glucose Lactate FiO2 Sodium 136 Potassium 4.6 Chloride 106 Carbon Dioxide 21 Anion Gap 14 BUN 10 Creatinine 0.6 L Est GFR ( Amer) > 60 Est GFR (Non-Af Amer) > 60 Random Glucose 91 Hemoglobin A1c Calcium 8.8 Phosphorus 3.2 Magnesium 1.9 Total Bilirubin 0.3 AST 50 H ALT 34 Alkaline Phosphatase 44 Total Protein 6.2 Albumin 3.8 Globulin 2.4 Albumin/Globulin Ratio 1.6 Procalcitonin 0.55 H Beta HCG, Quant Venous Blood Potassium Urine Color Urine Appearance Urine pH Ur Specific [place] Urine Protein Urine Glucose (UA) Urine Ketones Urine Blood Urine Nitrate Urine Bilirubin Urine Urobilinogen Ur Leukocyte Esterase Urine RBC Urine WBC Urine Bacteria Salicylates Urine Opiates Screen Urine Methadone Screen Acetaminophen Ur Barbiturates Screen Ur Phencyclidine Scrn Ur Amphetamines Screen U Benzodiazepines Scrn U Oth Cocaine Metabols U Cannabinoids Screen Alcohol, Quantitative 05/15/18 12:10 WBC RBC Hgb Hct MCV MCH MCHC RDW Plt Count MPV Gran % Lymph % (Auto) [place] % (Auto) Eos % (Auto) Baso % (Auto) Gran # Lymph # (Auto) [place] # (Auto) Eos # (Auto) Baso # (Auto) Neutrophils % (Manual) Lymphocytes % (Manual) Monocytes % (Manual) Platelet Evaluation ESR 3 pO2 VBG pH VBG pCO2 VBG HCO3 VBG Total CO2 VBG O2 Sat (Calc) VBG Base Excess VBG Potassium Glucose Lactate FiO2 Sodium Potassium Chloride Carbon Dioxide Anion Gap BUN Creatinine Est GFR ( Amer) Est GFR (Non-Af Amer) Random Glucose Hemoglobin A1c Calcium Phosphorus Magnesium Total Bilirubin AST ALT Alkaline Phosphatase Total Protein Albumin Globulin Albumin/Globulin Ratio Procalcitonin Beta HCG, Quant Venous Blood Potassium Urine Color Urine Appearance Urine pH Ur Specific [place] Urine Protein Urine Glucose (UA) Urine Ketones Urine Blood Urine Nitrate Urine Bilirubin Urine Urobilinogen Ur Leukocyte Esterase Urine RBC Urine WBC Urine Bacteria Salicylates Urine Opiates Screen Urine Methadone Screen Acetaminophen Ur Barbiturates Screen Ur Phencyclidine Scrn Ur Amphetamines Screen U Benzodiazepines Scrn U Oth Cocaine Metabols U Cannabinoids Screen Alcohol, Quantitative
--- NOTE | 2018-05-15 14:26 | CON ---
DATE: 05/15/2018 LOCATION: The patient is in the ICU. The patient seen in 129, bed 1. CHIEF COMPLAINT: Pain in her left buttocks. HISTORY OF PRESENT ILLNESS: This is a 28-year-old who has been having sciatic pain. According to the patient, she was diagnosed with sciatica by her doctor for the last 1-2 months and now it became worse. She came to the emergency room, complaining of left leg numbness and weakness. She states picking up her children, she developed sudden sensation in both legs. She denies any fevers, any chills. She denies any chest pain, shortness of breath or cough. No abdominal pain. No diarrhea or constipation. She denies any dysuria or frequency. She did have a urinary tract infection 1 month ago, was given an antibiotic. She does not know which antibiotic. It was twice daily for 1 week and her symptoms at that time had improved. PAST MEDICAL HISTORY: Significant for kidney stones and the recent urinary tract infections. PAST SURGICAL HISTORY: Significant for removal of a kidney stone. The patient also with an appendectomy and a D and C in the past. ALLERGIES: THE PATIENT HAS AN ALLERGY TO [place]CL[place], SHE SAYS AN ANTIBIOTIC HER MOM TOLD HER SHE WAS ALLERGIC TO MANY MANY YEARS AGO, WHAT TYPE OF ALLERGY IS NOT ENTIRELY CLEAR. MEDICATIONS AT HOME: She is not taking any medications. The last time she was on a medication was the antibiotics for urinary tract infection a month ago. SOCIAL HISTORY: She states that she has traveled to [place] last year in 09/2016 and she was in [place] many many years ago. She is . She has 2 children. No drugs. Occasional alcohol. PHYSICAL EXAMINATION: VITAL SIGNS: On exam, the patient's temperature is 97; heart rate of 101, it is down to 80 and respiratory rate of 22, blood pressure is 106/60. HEENT: Examination of HEENT is unremarkable. NECK: Supple. LUNGS: Have decreased breath sounds. HEART: Normal S1, S2. ABDOMEN: Soft, nontender. No rebound. No guarding. There is no CVA tenderness. NEUROLOGIC: There is no point tenderness of her spine. Her motor function is 5/5. LABORATORY DATA: Laboratory examination reveals CBC with a white count of 31,500, hemoglobin of 13, platelets of 359, 82% granulocytosis. A repeat white count is down to today 9.4 with a hemoglobin of 12. Chemistries revealed BUN of 10, creatinine of 0.6, AST is 50. Urinalysis is noted. Many bacteria, 0-2 wbc's, 250 glucose. There is proteinuria, trace ketones. The toxicology reveals cannabinoids to be positive. Imaging: The patient had a CAT scan of the abdomen and pelvis, which revealed minimal pericholecystic fluid, possible cholecystitis. Ultrasound maybe indicated. No obvious stone. The patient also had a chest x-ray, which is no active disease. The patient had an abdominal ultrasound. ASSESSMENT AND PLAN: A 28-year-old female with history of kidney stones, history of urinary tract infection, now with leukocytosis and tachycardia and systemic inflammatory response syndrome. Etiology of the leukocytosis which resolved within a day is not entirely clear. The patient was started on vancomycin by Dr. Roxana Townsend and aztreonam. The aztreonam was given in the emergency room only. No clear evidence of infection anywhere. We will or human immunodeficiency virus because of her age. I would recommend an MRI of the left sacroiliac joint and I would also do a vasculitis workup as certain vasculitis can present with neurological findings such as this. A sed rate and a C-reactive protein. We will continue the vancomycin for now. I doubt endocarditis. Pending blood culture results. I will order a sed rate, C-reactive protein, ESSENCE with vasculitis workup. I will make further recommendations. Continue the vancomycin at this time pending blood cultures. Etiology of the 30,000 white count is not clear. The patient also has LFT elevation and we will order a hepatitis profile. In addition to the human immunodeficiency virus, sed rate, C-reactive protein and a vasculitis workup, we will check on the culture results, check on the urine and blood cultures. The patient does have proteinuria and glucosuria and ketones in the urine. I will make further recommendations upon the availability of the initial results. We will follow closely with you. Should have an MRI of the sacroiliac joint. Aftab Quigley MD
--- NOTE | 2018-05-15 14:44 | MRI ---
Date of service: 05/14/2018 PROCEDURE: MR LUMBAR SPINE WITHOUT CONTRAST HISTORY: back pain, left leg numbness, leukocytosis, COMPARISON: None available. TECHNIQUE: Multiecho multiplanar sequences were performed through the lumbar spine without the use of intravenous contrast. FINDINGS: Normal lumbar lordosis. Vertebral body heights are preserved. Marrow signal unremarkable. Conus medullaris unremarkable at the level of T12 Paraspinal soft tissues are unremarkable. T12-L1: No disc herniation, spinal canal stenosis or neural foraminal narrowing. L1-2: No disc herniation, spinal canal stenosis or neural foraminal narrowing. L2-3: No disc herniation, spinal canal stenosis or neural foraminal narrowing. L3-4: No disc herniation, spinal canal stenosis or neural foraminal narrowing. L4-5: No disc herniation, spinal canal stenosis or neural foraminal narrowing. L5-S1: Minimal central disc protrusion and radial tear. OTHER FINDINGS: The report concurs with the preliminary report IMPRESSION: L5-S1. Minimal central disc protrusion and radial tear.
[2018-05-15 17:04] LABS: HEPATITIS B SURFACE AG Negative (NEGATIVE)
[2018-05-15 17:10] LABS: HEPATITIS A IGM NEGATIVE (NEGATIVE); HEPATITIS B CORE AB NEGATIVE (NEGATIVE)
[2018-05-15 17:22] LABS: HEPATITIS C ANTIBODY NEGATIVE (NEGATIVE)
--- NOTE | 2018-05-16 04:56 | CON ---
DATE: 05/15/2018 HISTORY OF PRESENT ILLNESS: The patient is 28-year-old female with reported history of depression and anxiety. The patient was admitted on the medical site for evaluation of numbness and weakness in her left leg. Psych consult was called because the patient has history of anxiety and depression. The patient was seen and examined. The patient reported that initially she started to feel that her leg is numb and she most likely lost her consciousness and that is why she ended up in the hospital. The patient reported that her depression is under control. The patient denied that she feels hopeless or helpless. The patient also denied that she feels depressed or suicidal. The patient is concerned about her medical condition, but does not about condition. The patient reported that she has outpatient psychiatrist and the patient reported that she is not concerned about her psychiatric illness as of now. The patient adamantly denied thoughts of harming herself or others. Denied hearing voices, denied seeing things. VITAL SIGNS: Seems to be stable. Temperature 98.6, pulse is 92, blood pressure 113/63, respiration 27, oxygen saturation is 98. MEDICATIONS: Reviewed. Tylenol, Flexeril, dexamethasone, Pepcid, and vancomycin. LABORATORY DATA: Reviewed. WBC cells are 31.5, today is trending down. Chemistry reviewed. Toxicology reviewed, cannabis positive. Serology is negative. MENTAL STATUS EXAM: The patient presented to be alert, oriented, pleasant, cooperative. Fair eye contact. Speech was normal rate, tone, quality and quantity. Mood described "I am concerned about that numbness". Affect was constricted. Thought process coherent and goal directed. Thought content, the patient denied visual, auditory, tactile hallucinations. Denied paranoid ideation. The patient denied thoughts of harming herself or others. The patient does not present to be psychotic. The patient's insight and judgment seems to be well impulse controlled. IMPRESSION: As per history, depression and anxiety. The patient does not have history of suicidal attempts. The patient does not have history of being admitted to the psychiatric inpatient unit. PLAN: This chart writer provided the patient with outpatient services. Neurological problems need to be ruled out such as MS. Dr. Shabazz, neurologist is on board. In regards of psychiatric illnesses, the patient's anxiety was related to the numbness. The patient denied that she feels depressed and anxious. The patient has two young kids who is under care of her [id number]. This chart writer will sign off. Should you have any questions give me a call back. Thank you very much for letting me participate in care of your patient. Christal Singh MD
[2018-05-16 06:23] LABS: GRAN # 9.91 (1.4-6.5); GRAN % 83.1 % (50.0-68.0); HEMOGLOBIN 12.1 g/dL (12.0-16.0); LYMPH # 1.4 (1.2-3.4); LYMPH % 11.8 % (22.0-35.0); MEAN CELL VOLUME 85.7 fl (80.0-105.0); MEAN CORPUSCULAR HEMOGLOBIN 29.2 pg (25.0-35.0); MEAN CORPUSCULAR HGB CONC 34.1 g/dl (31.0-37.0); MEAN PLATELET VOLUME 10.6 fl (7.0-11.0); MONO # 0.6 (0.1-0.6); MONO % 5.1 % (1.0-6.0); RBC 4.14 10^6/uL (3.5-6.1); RED CELL DISTRIBUTION WIDTH 12.7 % (11.5-14.5); WHITE BLOOD COUNT 11.9 10^3/ul (4.5-11.0)
[2018-05-16 07:16] LABS: ALB/GLOB RATIO 1.6 (1.1-1.8); ALBUMIN 3.8 g/dL (3.0-4.8); ALT/SGPT 32 U/L (7-56); AST/SGOT 37 U/L (14-36); BLOOD UREA NITROGEN 13 mg/dL (7-21); GFR NON-AFRICAN AMERICAN > 60
[2018-05-16] MEDS: Vancomycin 1gm in NS 250ml 1 GM/250 ML BAG IVPB SCH (08:20)
[2018-05-16 10:40] LABS: PH,URINE 6.5 (4.7-8.0); URINE BILIRUBIN NEGATIVE (NEGATIVE); URINE BLOOD NEGATIVE (NEGATIVE); URINE GLUCOSE (UA) NEGATIVE (NEGATIVE); URINE LEUKOCYTE ESTERASE NEGATIVE Leu/uL (NEGATIVE); URINE PROTEIN NEGATIVE mg/dL (<30 mg/dL)
[2018-05-16 10:41] LABS: URINE APPEARANCE CLEAR (CLEAR); URINE COLOR YELLOW (YELLOW)
--- NOTE | 2018-05-16 16:12 | CP.PCM.DIS ---
<Galilea Wilburn - Last Filed: 05/16/18 16:09> Provider - Provider Date of Admission: 05/14/18 19:02 Attending physician: Breanna Reardon MD Primary care physician: Ngoc Blas MD Consults: neurology neurosurgery ID ICU Time Spent in preparation of Discharge (in minutes): 45 Diagnosis - Discharge Diagnosis (1) Herniation of intervertebral disc between L5 and S1 Status: Chronic Priority: High (2) Left sciatic nerve pain Status: Acute Priority: High (3) Weakness of left lower extremity Status: Acute Priority: High (4) Left leg numbness Status: Acute Priority: High Hospital Course - Lab Results Lab Results: Micro Results 05/14/18 21:32 Naris MRSA Culture (Admit) - Final MRSA NOT DETECTED 05/14/18 16:55 Blood Blood Culture - Preliminary NO GROWTH AFTER 24 HOURS 05/14/18 16:40 Blood Blood Culture - Preliminary NO GROWTH AFTER 24 HOURS Most Recent Lab Values WBC 11.9 10^3/ul (4.5-11.0) H D 05/16/18 06:00 RBC 4.14 10^6/uL (3.5-6.1) 05/16/18 06:00 Hgb 12.1 g/dL (12.0-16.0) 05/16/18 06:00 Hct 35.5 % (36.0-48.0) L 05/16/18 06:00 MCV 85.7 fl (80.0-105.0) 05/16/18 06:00 MCH 29.2 pg (25.0-35.0) 05/16/18 06:00 MCHC 34.1 g/dl (31.0-37.0) 05/16/18 06:00 RDW 12.7 % (11.5-14.5) 05/16/18 06:00 Plt Count 260 10^3/uL (120.0-450.0) 05/16/18 06:00 MPV 10.6 fl (7.0-11.0) 05/16/18 06:00 Gran % 83.1 % (50.0-68.0) H 05/16/18 06:00 Lymph % (Auto) 11.8 % (22.0-35.0) L 05/16/18 06:00 [place] % (Auto) 5.1 % (1.0-6.0) 05/16/18 06:00 Eos % (Auto) 0.0 % (1.5-5.0) L 05/16/18 06:00 Baso % (Auto) 0.0 % (0.0-3.0) 05/16/18 06:00 Gran # 9.91 (1.4-6.5) H 05/16/18 06:00 Lymph # (Auto) 1.4 (1.2-3.4) 05/16/18 06:00 [place] # (Auto) 0.6 (0.1-0.6) 05/16/18 06:00 Eos # (Auto) 0.0 (0.0-0.7) 05/16/18 06:00 Baso # (Auto) 0.00 K/mm3 (0.0-2.0) 05/16/18 06:00 Neutrophils % (Manual) 84 % (50.0-70.0) H 05/14/18 15:45 Lymphocytes % (Manual) 13 % (22.0-35.0) L 05/14/18 15:45 Monocytes % (Manual) 3 % (1.0-6.0) 05/14/18 15:45 Platelet Evaluation Normal (NORMAL) 05/14/18 15:45 ESR 3 mm/hr (0.0-20.0) 05/15/18 12:10 pO2 95 mm/Hg (30-55) H 05/14/18 16:40 VBG pH 7.29 (7.32-7.43) L 05/14/18 16:40 VBG pCO2 54.0 (40-60) 05/14/18 16:40 VBG HCO3 26.0 mmol/l (21-28) 05/14/18 16:40 VBG Total CO2 27.7 mmol.L (22-28) 05/14/18 16:40 VBG O2 Sat (Calc) 99.2 % (40-65) H 05/14/18 16:40 VBG Base Excess -1.4 mmol/L (0.0-2.0) L 05/14/18 16:40 VBG Potassium 3.5 mmol/L (3.6-5.2) L 05/14/18 16:40 Sodium 141.0 mmol/L (132-148) 05/14/18 16:40 Chloride 108.0 mmol/L (98-107) H 05/14/18 16:40 Glucose 71 mg/dl (65-105) 05/14/18 16:40 Lactate 1.1 mmol/L (0.7-2.1) 05/14/18 16:40 FiO2 21.0 % 05/14/18 16:40 Sodium 136 mmol/L (132-148) 05/16/18 06:00 Potassium 4.2 mmol/L (3.6-5.0) 05/16/18 06:00 Chloride 107 mmol/L (98-107) 05/16/18 06:00 Carbon Dioxide 22 mmol/L (21-33) 05/16/18 06:00 Anion Gap 11 (10-20) 05/16/18 06:00 BUN 13 mg/dL (7-21) 05/16/18 06:00 Creatinine 0.5 mg/dl (0.7-1.2) L 05/16/18 06:00 Est GFR ( Amer) > 60 05/16/18 06:00 Est GFR (Non-Af Amer) > 60 05/16/18 06:00 Random Glucose 110 mg/dL (70-110) 05/16/18 06:00 Hemoglobin A1c 5.2 % (4.2-6.5) 05/15/18 12:10 Calcium 9.0 mg/dL (8.4-10.5) 05/16/18 06:00 Phosphorus 3.2 mg/dL (2.5-4.5) 05/16/18 06:00 Magnesium 1.9 mg/dL (1.7-2.2) 05/16/18 06:00 Total Bilirubin 0.2 mg/dL (0.2-1.3) 05/16/18 06:00 AST 37 U/L (14-36) H D 05/16/18 06:00 ALT 32 U/L (7-56) 05/16/18 06:00 Alkaline Phosphatase 43 U/L (38-126) 05/16/18 06:00 C-Reactive Protein 9.90 mg/L (0.0-9.9) 05/15/18 12:10 Total Protein 6.2 g/dL (5.8-8.3) 05/16/18 06:00 Albumin 3.8 g/dL (3.0-4.8) 05/16/18 06:00 Globulin 2.4 gm/dL 05/16/18 06:00 Albumin/Globulin Ratio 1.6 (1.1-1.8) 05/16/18 06:00 Procalcitonin 0.55 NG/ML (0.19-0.49) H 05/15/18 06:00 Beta HCG, Quant < 2.39 mIU/mL (0-6.15) 05/14/18 15:45 Venous Blood Potassium 3.5 mmol/L (3.6-5.2) L 05/14/18 16:40 Urine Color Yellow (YELLOW) 05/16/18 10:31 Urine Appearance Clear (CLEAR) 05/16/18 10:31 Urine pH 6.5 (4.7-8.0) 05/16/18 10:31 Ur Specific Steele 1.025 (1.005-1.035) 05/16/18 10:31 Urine Protein Negative mg/dL (<30 mg/dL) 05/16/18 10:31 Urine Glucose (UA) Negative mg/dL (NEGATIVE) 05/16/18 10:31 Urine Ketones 40 mg/dL (NEGATIVE) H 05/16/18 10:31 Urine Blood Negative (NEGATIVE) 05/16/18 10:31 Urine Nitrate Negative (NEGATIVE) 05/16/18 10:31 Urine Bilirubin Negative (NEGATIVE) 05/16/18 10:31 Urine Urobilinogen 1.0 E.U./dL (<1 E.U./dL) H 05/16/18 10:31 Ur Leukocyte Esterase Negative Denzel/uL (NEGATIVE) 05/16/18 10:31 Urine RBC Negative /hpf (0-2) 05/14/18 16:55 Urine WBC 0 - 2 /hpf (0-6) 05/14/18 16:55 Urine Bacteria Many (NEG) 05/14/18 16:55 Salicylates < 1 mg/dL (2.0-20.0) L 05/14/18 15:45 Urine Opiates Screen Negative (NEGATIVE) 05/14/18 16:55 Urine Methadone Screen Negative (NEGATIVE) 05/14/18 16:55 Acetaminophen < 10.0 ug/ml (10.0-20.0) L 05/14/18 15:45 Ur Barbiturates Screen Negative (NEGATIVE) 05/14/18 16:55 Ur Phencyclidine Scrn Negative (NEGATIVE) 05/14/18 16:55 Ur Amphetamines Screen Negative (NEGATIVE) 05/14/18 16:55 U Benzodiazepines Scrn Negative (NEGATIVE) 05/14/18 16:55 U Oth Cocaine Metabols Negative (NEGATIVE) 05/14/18 16:55 U Cannabinoids Screen Positive (NEGATIVE) H 05/14/18 16:55 Alcohol, Quantitative < 10 mg/dL (0-10) 05/14/18 15:45 ESSENCE Screen Negative (Negative) 05/15/18 12:10 ESSENCE Titer TEST NOT PERFORMED 05/15/18 12:10 ESSENCE Titer 2 TEST NOT PERFORMED 05/15/18 12:10 ESSENCE Pattern TEST NOT PERFORMED 05/15/18 12:10 ESSENCE Pattern 2 TEST NOT PERFORMED 05/15/18 12:10 Hepatitis A IgM Ab Negative (NEGATIVE) 05/15/18 12:10 Hep Bs Antigen Negative (NEGATIVE) 05/15/18 12:10 Hep B Core IgM Ab Negative (NEGATIVE) 05/15/18 12:10 Hepatitis C Antibody Negative (NEGATIVE) 05/15/18 12:10 HIV 1&2 Ag/Ab, 4th Gen Nonreactive (Nonreactive) 05/15/18 12:10 - Hospital Course Hospital Course: Lakeisha Encinas is a 28 year old female with PMH anxiety who presented with left leg numbness and weakness that started this afternoon. Patient states that she was going to give her children a bath when she felt that her left leg "give out" become numb and weak and she fell on the floor. Then she felt very anxious and was unable to move her left leg. Patient also reports left sided sciatica pain for the past 3 years since her . However, it has gotten worse this past month. Patient was supposed to get physical therapy but this event occurred before her appointment. The patient was diagnosed with L5-S1 mild disc protrusion and radial tear which was found on Lumbar MRI. Abdominal CT results showed no evidence of compression of the spinal cord however. Neurosurgery was consulted and after examining the patient, Dr. Quezada advised follow up as an outpatient. Neurology was consulted as well and advised Brain MRI due to family history of MS (mother) which will be done as an outpatient. She received dexamethasone and flexeril. She reported tingling, burning pain on the sole of her left foot but overall improvement of motor and sensory symptoms of her left leg. Patient was evaluated by PT. On admission, patient presented with leukocytosis with WBC of 31.5. Infectious disease was consulted and advised to start IV antibiotics. However leukocytosis trended downwards from 31.5 to 9.4 to 11.9. She will get an MRI of L SI joint as outpatient. Her AST levels were elevated at 50 and Hepatitis panel was performed which was negative for Hepatitis A, B and C. HIV testing was negative as well. ESSENCE panel was performed which was also negative. At discharge patient is ambulating on crutches. Vitals and labs are stable. Pain was much improved. Discharge Exam - Head Exam Head Exam: ATRAUMATIC, NORMOCEPHALIC - Eye Exam Eye Exam: EOMI, Normal appearance, PERRL - ENT Exam ENT Exam: Mucous Membranes Moist, Normal Exam - Neck Exam Neck exam: Full Rom, Normal Inspection - Respiratory Exam Respiratory Exam: Clear to PA & Lateral, NORMAL BREATHING PATTERN, UNREMARKABLE - Cardiovascular Exam Cardiovascular Exam: REGULAR RHYTHM, +S1, +S2 - GI/Abdominal Exam GI & Abdominal Exam: Normal Bowel Sounds, Soft, Unremarkable - Rectal Exam Rectal Exam: Deferred - Extremities Exam Extremities exam: full ROM, normal inspection, pedal pulses present - Back Exam Back exam: NORMAL INSPECTION, tenderness (L lumbar) - Neurological Exam Neurological exam: Abnormal Gait (with crutches), Alert, CN II-XII Intact, Oriented x3, Reflexes Normal - Skin Skin Exam: Dry, Intact, Normal Color, Warm Discharge Plan - Discharge Medications Prescriptions: Cyclobenzaprine [Flexeril] 5 mg PO Q8 #10 tab Dexamethasone [Decadron] 2 mg PO BID #4 tab - Follow Up Plan Condition: IMPROVED Disposition: HOME/ ROUTINE Patient education suggested?: Yes Instructions: Herniated Disc (DC) Additional Instructions: Please follow-up with your primary care provider at the [facility] within 3-5 days of discharge. Please obtain an MRI of the brain as an outpatient. You primary care provider can refer you to a neurologist if needed based on the results. Please obtain an MRI of your sacroiliac joint (low left back) as an outpatient. Take prescriptions as instructed. You may obtain refills from your primary care doctor if necessary. You are being given a referral for outpatient physical therapy. If symptoms return, please present to the nearest emergency room. Referrals: Benito Quezada MD [Staff Provider] - Ngoc Blas MD [Primary Care Provider] - Niall Varela MD [Staff Provider] - <Breanna Reardon - Last Filed: 05/16/18 19:23> Provider - Provider Date of Admission: 05/14/18 19:02 Attending physician: Breanna Reardon MD Primary care physician: Ngoc Blas MD Hospital Course - Lab Results Lab Results: Micro Results 05/14/18 16:55 Blood Blood Culture - Preliminary NO GROWTH AFTER 48 HOURS 05/14/18 16:40 Blood Blood Culture - Preliminary NO GROWTH AFTER 48 HOURS 05/14/18 22:47 Urine Urine Culture - Preliminary Gram Negative David 05/14/18 21:32 Naris MRSA Culture (Admit) - Final MRSA NOT DETECTED Most Recent Lab Values WBC 11.9 10^3/ul (4.5-11.0) H D 05/16/18 06:00 RBC 4.14 10^6/uL (3.5-6.1) 05/16/18 06:00 Hgb 12.1 g/dL (12.0-16.0) 05/16/18 06:00 Hct 35.5 % (36.0-48.0) L 05/16/18 06:00 MCV 85.7 fl (80.0-105.0) 05/16/18 06:00 MCH 29.2 pg (25.0-35.0) 05/16/18 06:00 MCHC 34.1 g/dl (31.0-37.0) 05/16/18 06:00 RDW 12.7 % (11.5-14.5) 05/16/18 06:00 Plt Count 260 10^3/uL (120.0-450.0) 05/16/18 06:00 MPV 10.6 fl (7.0-11.0) 05/16/18 06:00 Gran % 83.1 % (50.0-68.0) H 05/16/18 06:00 Lymph % (Auto) 11.8 % (22.0-35.0) L 05/16/18 06:00 [place] % (Auto) 5.1 % (1.0-6.0) 05/16/18 06:00 Eos % (Auto) 0.0 % (1.5-5.0) L 05/16/18 06:00 Baso % (Auto) 0.0 % (0.0-3.0) 05/16/18 06:00 Gran # 9.91 (1.4-6.5) H 05/16/18 06:00 Lymph # (Auto) 1.4 (1.2-3.4) 05/16/18 06:00 [place] # (Auto) 0.6 (0.1-0.6) 05/16/18 06:00 Eos # (Auto) 0.0 (0.0-0.7) 05/16/18 06:00 Baso # (Auto) 0.00 K/mm3 (0.0-2.0) 05/16/18 06:00 Neutrophils % (Manual) 84 % (50.0-70.0) H 05/14/18 15:45 Lymphocytes % (Manual) 13 % (22.0-35.0) L 05/14/18 15:45 Monocytes % (Manual) 3 % (1.0-6.0) 05/14/18 15:45 Platelet Evaluation Normal (NORMAL) 05/14/18 15:45 ESR 3 mm/hr (0.0-20.0) 05/15/18 12:10 pO2 95 mm/Hg (30-55) H 05/14/18 16:40 VBG pH 7.29 (7.32-7.43) L 05/14/18 16:40 VBG pCO2 54.0 (40-60) 05/14/18 16:40 VBG HCO3 26.0 mmol/l (21-28) 05/14/18 16:40 VBG Total CO2 27.7 mmol.L (22-28) 05/14/18 16:40 VBG O2 Sat (Calc) 99.2 % (40-65) H 05/14/18 16:40 VBG Base Excess -1.4 mmol/L (0.0-2.0) L 05/14/18 16:40 VBG Potassium 3.5 mmol/L (3.6-5.2) L 05/14/18 16:40 Sodium 141.0 mmol/L (132-148) 05/14/18 16:40 Chloride 108.0 mmol/L (98-107) H 05/14/18 16:40 Glucose 71 mg/dl (65-105) 05/14/18 16:40 Lactate 1.1 mmol/L (0.7-2.1) 05/14/18 16:40 FiO2 21.0 % 05/14/18 16:40 Sodium 136 mmol/L (132-148) 05/16/18 06:00 Potassium 4.2 mmol/L (3.6-5.0) 05/16/18 06:00 Chloride 107 mmol/L (98-107) 05/16/18 06:00 Carbon Dioxide 22 mmol/L (21-33) 05/16/18 06:00 Anion Gap 11 (10-20) 05/16/18 06:00 BUN 13 mg/dL (7-21) 05/16/18 06:00 Creatinine 0.5 mg/dl (0.7-1.2) L 05/16/18 06:00 Est GFR ( Amer) > 60 05/16/18 06:00 Est GFR (Non-Af Amer) > 60 05/16/18 06:00 Random Glucose 110 mg/dL (70-110) 05/16/18 06:00 Hemoglobin A1c 5.2 % (4.2-6.5) 05/15/18 12:10 Calcium 9.0 mg/dL (8.4-10.5) 05/16/18 06:00 Phosphorus 3.2 mg/dL (2.5-4.5) 05/16/18 06:00 Magnesium 1.9 mg/dL (1.7-2.2) 05/16/18 06:00 Total Bilirubin 0.2 mg/dL (0.2-1.3) 05/16/18 06:00 AST 37 U/L (14-36) H D 05/16/18 06:00 ALT 32 U/L (7-56) 05/16/18 06:00 Alkaline Phosphatase 43 U/L (38-126) 05/16/18 06:00 C-Reactive Protein 9.90 mg/L (0.0-9.9) 05/15/18 12:10 Total Protein 6.2 g/dL (5.8-8.3) 05/16/18 06:00 Albumin 3.8 g/dL (3.0-4.8) 05/16/18 06:00 Globulin 2.4 gm/dL 05/16/18 06:00 Albumin/Globulin Ratio 1.6 (1.1-1.8) 05/16/18 06:00 Procalcitonin 0.55 NG/ML (0.19-0.49) H 05/15/18 06:00 Beta HCG, Quant < 2.39 mIU/mL (0-6.15) 05/14/18 15:45 Venous Blood Potassium 3.5 mmol/L (3.6-5.2) L 05/14/18 16:40 Urine Color Yellow (YELLOW) 05/16/18 10:31 Urine Appearance Clear (CLEAR) 05/16/18 10:31 Urine pH 6.5 (4.7-8.0) 05/16/18 10:31 Ur Specific Steele 1.025 (1.005-1.035) 05/16/18 10:31 Urine Protein Negative mg/dL (<30 mg/dL) 05/16/18 10:31 Urine Glucose (UA) Negative mg/dL (NEGATIVE) 05/16/18 10:31 Urine Ketones 40 mg/dL (NEGATIVE) H 05/16/18 10:31 Urine Blood Negative (NEGATIVE) 05/16/18 10:31 Urine Nitrate Negative (NEGATIVE) 05/16/18 10:31 Urine Bilirubin Negative (NEGATIVE) 05/16/18 10:31 Urine Urobilinogen 1.0 E.U./dL (<1 E.U./dL) H 05/16/18 10:31 Ur Leukocyte Esterase Negative Denzel/uL (NEGATIVE) 05/16/18 10:31 Urine RBC Negative /hpf (0-2) 05/14/18 16:55 Urine WBC 0 - 2 /hpf (0-6) 05/14/18 16:55 Urine Bacteria Many (NEG) 05/14/18 16:55 Salicylates < 1 mg/dL (2.0-20.0) L 05/14/18 15:45 Urine Opiates Screen Negative (NEGATIVE) 05/14/18 16:55 Urine Methadone Screen Negative (NEGATIVE) 05/14/18 16:55 Acetaminophen < 10.0 ug/ml (10.0-20.0) L 05/14/18 15:45 Ur Barbiturates Screen Negative (NEGATIVE) 05/14/18 16:55 Ur Phencyclidine Scrn Negative (NEGATIVE) 05/14/18 16:55 Ur Amphetamines Screen Negative (NEGATIVE) 05/14/18 16:55 U Benzodiazepines Scrn Negative (NEGATIVE) 05/14/18 16:55 U Oth Cocaine Metabols Negative (NEGATIVE) 05/14/18 16:55 U Cannabinoids Screen Positive (NEGATIVE) H 05/14/18 16:55 Alcohol, Quantitative < 10 mg/dL (0-10) 05/14/18 15:45 ESSENCE Screen Negative (Negative) 05/15/18 12:10 ESSENCE Titer TEST NOT PERFORMED 05/15/18 12:10 ESSENCE Titer 2 TEST NOT PERFORMED 05/15/18 12:10 ESSENCE Pattern TEST NOT PERFORMED 05/15/18 12:10 ESSENCE Pattern 2 TEST NOT PERFORMED 05/15/18 12:10 Hepatitis A IgM Ab Negative (NEGATIVE) 05/15/18 12:10 Hep Bs Antigen Negative (NEGATIVE) 05/15/18 12:10 Hep B Core IgM Ab Negative (NEGATIVE) 05/15/18 12:10 Hepatitis C Antibody Negative (NEGATIVE) 05/15/18 12:10 HIV 1&2 Ag/Ab, 4th Gen Nonreactive (Nonreactive) 05/15/18 12:10 Attending/Attestation - Attestation I have personally seen and examined this patient.: Yes I have fully participated in the care of the patient.: Yes I have reviewed all pertinent clinical information, including history, physical exam and plan: Yes Notes (Text): 05/16/18 19:20 attending note; Patient seen and examined with resident. neurosurgery attending by the bedside. Physical examination completed. Left leg numbness improved. Pain improved. No foot drop noted. Denies any urinary incontinence or retention. Denies any saddle anesthesia. Patient is a 28 year old female with a history of anxiety and L sciatica who presented to the ED with LLE pain and numbness with the inability to walk. Patient was initially managed in the ICU to r/o cauda equina (patient reported possible urinary retention) and significant leukocytosis (31). MRI of the lumbosacral spine showed Central disc protrusion at L5 and S1 with radial tear. Case discussed with neurosurgery in detail. Outpatient follow-up. Started on Decadron, Flexeril. Pain management with Toradol. PT evaluation Appreciated. Neurology evaluation appreciated. leukocytosis; resolved. with no signs of infection. No fevers or chills. Procalcitonin Is negative. Antibiotics discontinued. Blood culture, urine culture is negative so far. MRI of the sacroiliac joint ordered. patient denied any tenderness and wanted to go home. Advised to follow-up with PMD in 3 days. Outpatient sacroiliac joint MRI recommended. Neurology follow-up advised. Upon discharge the patient will follow-up with PMD Dr. Blas.
[2018-05-16 16:13] VITALS: BP 100/57; PULSE 108; RESP 18; TEMP 99; O2SAT 97
--- NOTE | 2018-05-16 16:30 | CP.PCM.PN ---
Subjective - Date & Time of Evaluation Date of Evaluation: 05/16/18 Time of Evaluation: 09:30 - Subjective Subjective: No fevers, not in distress, afebrile, back pain is slightly improved. Objective - Vital Signs/Intake and Output Vital Signs (last 24 hours): Temp Pulse Resp BP Pulse Ox 99 F 108 H 18 100/57 L 97 05/16/18 14:00 05/16/18 14:00 05/16/18 14:00 05/16/18 14:00 05/16/18 14:00 Intake and Output: 05/16/18 05/16/18 06:59 18:59 Intake Total 1340 660 Balance 1340 660 - Labs Labs: 05/16/18 06:00 05/16/18 06:00 - Constitutional Appears: No Acute Distress, Chronically Ill - Head Exam Head Exam: NORMAL INSPECTION - Neck Exam Neck Exam: absent: Meningismus - Respiratory Exam Respiratory Exam: absent: Rales - Cardiovascular Exam Cardiovascular Exam: +S1, +S2 - GI/Abdominal Exam GI & Abdominal Exam: Soft. absent: Tenderness Assessment and Plan - Assessment and Plan (Free Text) Plan: Assessment SIRS with no obvious evidence of infection or sepsis history of UTI history of kidney stones Plan follow up culture results - continue to monitor off antibiotics may need vasculitis work up WBC count has significantly decreased would recommend MRI of the sacroiliac joint
--- NOTE | 2018-05-16 21:20 | CON ---
DATE: 05/16/2018 REASON FOR CONSULTATION: Left leg numbness. HISTORY OF PRESENT ILLNESS: The patient is a 28-year-old young woman who states that in April she had an episode of sciatic pain in her left leg. It went from her left buttock down the back of her thigh too, but not below, her left knee. She states she has had this in the past, occurring when she was with each of her two children. She states this happened without any antecedent trauma or any other straining she can think of. However, about 3 days ago, her left leg gave out and she states the whole leg became numb and weak. She states the leg was tingly in her thigh somewhat, but she could not feel anything from her knee down to the toes in the entire left side. She has never had any symptoms essentially on the right side outside of occasional buttock discomfort. No loss of bowel or bladder control. She was brought to the hospital. There were some question of urinary retention, but she voided in the emergency room when she came in. She states that it has improved some to the point that now she has some movement in her lower left leg at this time, but it still does not feel normal. Still little tingly, especially, in the bottom of her foot. PAST MEDICAL HISTORY: She denies any significant past medical history. MEDICATIONS: Are as listed on the chart. ALLERGIES: SHE DENIES ANY ALLERGIES TO MEDICATIONS OUTSIDE OF CEFACLOR A CHILD, BUT SHE HAS TAKEN AMOXICILLIN. PAST SURGICAL HISTORY: Significant she states for kidney stones and placement of a stent few years ago when she had an appendectomy as a child. FAMILY HISTORY: She does mention that her mother has MS as well as fibromyalgia. SOCIAL HISTORY: She lives with her . She has 2 children as mentioned above. She smokes5 to 6 cigarettes a day which she has been doing for 8 years. She states she uses marijuana every other day. PHYSICAL EXAMINATION: NEUROLOGIC: She has no straight-leg raising noted on the right leg up to 90 degrees. On the left side, at about 80 to 90 degrees, she complains of some discomfort in the anterior left thigh. She is actively moving both lower extremities and to light touch, she states each side feels the same above the medial ankle. However, it feels very tingly in the first web space of her left foot compared to the right and somewhat tingly in the lateral ankle on the left compared to the right. Did not really get any clonus. She is very ticklish, so it is difficult to evaluate Babinski's, although, they appeared to be neutral, may be little upgoing on the right side and she is hypersensitive on the left side. Good distal pulses. She has some weakness where she cannot fully dorsiflex as much on the left ankle as she can on the right and it is weaker on the left side for both the anterior tib and the EHL. She has weak hip flexors on the left side as well compared to the right. Quad seen to be pretty good. She did an MRI of her lumbar spine which shows a small central disc protrusion with annular tear at L5-S1. Otherwise, the MRI looks fine. IMPRESSION: Is that of some type of left lower extremity neuropathy. There is nothing significant on lumbar MRI that would account for description of all of her symptoms. Certainly, with the mother having multiple sclerosis, that may be part of differential diagnoses and an MRI of the brain with and without contrast has been ordered. She does state things are improving, but again at this point, there is nothing neurosurgically indicated for any intervention, so we will follow along with the patient if as needed. Please recall. Thank you for allowing me to participate in the care of your patient. Benito Quezada MD
== END 2018-05-16 16:14 | disposition home or self-care (01) | DRG 552 ==
LOC: ED 14:39 → ERH 19:02 → CCU 20:55 → 5RSO 05-15 11:21
PROVIDERS: ADMIT Internal Medicine; ATTEND Internal Medicine
DX: M51.27 Other intervertebral disc displacement, lumbosacral region (principal); R65.10 Systemic inflammatory response syndrome (SIRS) of non-infectious origin without acute organ dysfunction; M54.32 Sciatica, left side; F32.9 Major depressive disorder, single episode, unspecified; F41.1 Generalized anxiety disorder; F12.90 Cannabis use, unspecified, uncomplicated; F41.0 Panic disorder [episodic paroxysmal anxiety]; N28.1 Cyst of kidney, acquired; F17.210 Nicotine dependence, cigarettes, uncomplicated; Z87.442 Personal history of urinary calculi; Z87.440 Personal history of urinary (tract) infections; Z82.0 Family history of epilepsy and other diseases of the nervous system